=== PATIENT | female | born 1960 | race Caucasian/White ===

== ENCOUNTER 2018-01-04 09:26 | Emergency (ER) | payer OTHER ==
[~2018-01-04] VITALS: Ht 170.2 cm; Wt 74.8 kg
[~2018-01-04 09:26] MED LIST: ACET325; ALPR.25 PO; ALPR.5 PO; ASPI325 PO; ASPI81CH PO; Aspir 8181 MG PO; BUSP10 PO; CEPH500 PO; CHOLESTEROL; CILO100 PO; CLOP75 PO; CYCL10 PO; Co Q-1010 MG PO; Crestor40 MG PO; DELTASONE20 MG PO; DULO30 PO; DULO60 PO; FAMO20 PO; FAMO40 PO; FETZIMA120 MG PO; FISH1000 PO; GABA600 PO; GABA800 PO; GENTAMICIN; HYDACE10B PO; HYDACE5 PO; HYDCHL25 PO; HYDR1TAB94 PO; Hair, Skin & N1 EACH PO; IBUHYD PO; IBUP800; ISOMON30 PO; ISOMON60ER PO; Isosorbide Mono30 MG PO; Keflex500 MG PO; LEVSOD100 PO; LEVSOD125 PO; LEVSOD25 PO; MELO7.5 PO; METO10 PO; METO25 PO; METO50 PO; Mobic7.5 MG PO; Multiple Vitam1 EAC1; NAPR250 PO; NAPR500 PO; NAPR550 PO; NITR.4SL SL; NITR.6SL; NITR.6SL SL; NORT25 PO; NYST100SU SS; Nicoderm Cq1 EAC1 TD; ONDA4ODT MM; OXYACE5T PO; PANT40 PO; PARO20 PO; PLETAL; PROC10 PO; PROC25S; PROC25S PR; PROM25 PO; Percocet 5-3251 EACH PO; RANI150 PO; ROCEPHIN IVPB; ROSU10TA PO; RXHYOS.125 PO; RXONDA4ODT MM; RXOXYACE PO; SUMA25 PO; Stool Softener100 MG PO; THYROID; THYROID PILL; TOPI100 PO; TRAM50 PO; UNKNOWN ANXIETY MED; Ultram50 MG PO; [UNRECOGNIZED DRUG - REMARK]; [UNRECOGNIZED DRUG - REMARK]
[2018-01-04] MEDS ORDERED: Percocet 5-3251 EACH PO (10:13)
[2018-01-04] MEDS ORDERED: Mupirocin22 GM TOP (10:13)
== END 2018-01-04 10:50 | disposition home or self-care (01) ==
LOC: ER 09:26
DX: T21.02XA Burn of unspecified degree of abdominal wall, initial encounter (principal); T31.0 Burns involving less than 10% of body surface; X11.8XXA Contact with other hot tap-water, initial encounter; Z88.8 Allergy status to other drugs, medicaments and biological substances; Z79.899 Other long term (current) drug therapy; Z79.82 Long term (current) use of aspirin; E03.9 Hypothyroidism, unspecified; Z86.73 Personal history of transient ischemic attack (TIA), and cerebral infarction without residual deficits; I25.2 Old myocardial infarction; G43.909 Migraine, unspecified, not intractable, without status migrainosus; E78.00 Pure hypercholesterolemia, unspecified; Z87.891 Personal history of nicotine dependence
CPT/HCPCS: 16020; 96372; 99283; J1170

== ENCOUNTER 2018-02-22 12:27 | Emergency (ER) | payer OTHER ==
[~2018-02-22] VITALS: Ht 170.2 cm; Wt 68.0 kg
[~2018-02-22 12:27] MED LIST changes: +Mupirocin22 GM TOP
[2018-02-22 12:53] LABS: BASOPHILS ABSOLUTE AUTO 0.06 K/mm3 (0.00-0.23); BASOPHILS PERCENT AUTO 1 % (0-2); EOSINOPHILS ABSOLUTE AUTO 0.21 K/mm3 (0.00-0.68); EOSINOPHILS PERCENT AUTO 2 % (0-6); Hematocrit 37.9 % (33.0-51.0); IMMATURE GRAN ABSOLUTE AUTO 0.03 K/mm3 (0.00-0.10); IMMATURE GRAN PERCENT AUTO 0 % (0-1); LYMPHOCYTES ABSOLUTE AUTO 1.97 K/mm3 (0.84-5.20); LYMPHOCYTES PERCENT AUTO 21 % (21-46); MONOCYTES ABSOLUTE AUTO 0.65 K/mm3 (0.16-1.47); MONOCYTES PERCENT AUTO 7 % (4-13); Mean Corpuscular HGB 28.3 pg (26.0-34.0); Mean Corpuscular HGB Conc 31.7 g/dL (31.5-36.5); Mean Corpuscular Volume 89 fL (80-100); Mean Platelet Volume 9.3 fL (9.1-12.4); NEUTROPHILS ABSOLUTE AUTO 6.33 K/mm3 (1.96-9.15); NEUTROPHILS PERCENT AUTO 69 % (41-73); Platelet Count 264 K/mm3 (150-400); RDW Coefficient Variation 13.8 % (11.7-14.2); RDW Standard Deviation 44.5 fL (35.1-46.3); Red Blood Cell Count 4.24 M/mm3 (3.80-5.20); White Blood Cell Count 9.25 K/mm3 (4.00-11.30)
[2018-02-22 13:07] LABS: Troponin I <0.015 ng/mL (0.000-0.040)
[2018-02-22 13:08] LABS: Alanine Aminotransfer (ALT/SGP 26 U/L (12-78); Albumin, Blood 3.7 g/dL (3.4-5.0); Albumin/Globulin Ratio 1.2 (0.8-1.8); Alk Phos 142 U/L (50-136); Anion Gap 5 mmol/L (6-16); Aspartate Aminotrans (AST/SGOT 12 U/L (12-37); Bilirubin, Total 0.3 mg/dL (0.1-1.0); Blood Urea Nitrogen 18 mg/dL (8-24); Bun/Creatinine Ratio 15.5 (12.0-20.0); CO2, Blood 30 mmol/L (21-32); Calcium, Blood 8.8 mg/dL (8.5-10.1); Chloride, Blood 104 mmol/L (98-108); Creatinine, Blood 1.16 mg/dL (0.40-1.00); Globulin, Blood 3.2 g/dL (2.2-4.0); Glomerular Filtration Rate 51 (60-); Glucose, Blood 116 mg/dL (70-99); Potassium, Blood 4.1 mmol/L (3.5-5.5); Sodium, Blood 139 mmol/L (136-145); Total Protein, Blood 6.9 g/dL (6.4-8.2)
== END 2018-02-22 13:45 | disposition home or self-care (01) ==
LOC: ER 12:27
PROVIDERS: Emergency Medicine
DX: R55 Syncope and collapse (principal); T46.5X5A Adverse effect of other antihypertensive drugs, initial encounter; I25.2 Old myocardial infarction; E78.00 Pure hypercholesterolemia, unspecified; E03.9 Hypothyroidism, unspecified; Z86.73 Personal history of transient ischemic attack (TIA), and cerebral infarction without residual deficits; Z88.8 Allergy status to other drugs, medicaments and biological substances; Z79.899 Other long term (current) drug therapy; Z79.82 Long term (current) use of aspirin; Z87.891 Personal history of nicotine dependence
CPT/HCPCS: 80053; 82947; 83880; 84484; 85025; 93005; 93010; 96361; 96374; 99284-25; J2405

== ENCOUNTER 2018-06-10 16:11 | Emergency (ER) | payer OTHER ==
[~2018-06-10] VITALS: Ht 170.2 cm; Wt 74.8 kg
[2018-06-10] MEDS ORDERED: Naprosyn500 MG PO (17:57)
[2018-06-10] MEDS ORDERED: Norco 5-325 Ta1 EACH PO (17:57)
== END 2018-06-10 18:18 | disposition home or self-care (01) ==
LOC: ER 16:11
DX: S52.121A Displaced fracture of head of right radius, initial encounter for closed fracture (principal); M25.421 Effusion, right elbow; G43.909 Migraine, unspecified, not intractable, without status migrainosus; E78.00 Pure hypercholesterolemia, unspecified; E03.9 Hypothyroidism, unspecified; Z88.8 Allergy status to other drugs, medicaments and biological substances; Z79.82 Long term (current) use of aspirin; Z79.899 Other long term (current) drug therapy; Z87.891 Personal history of nicotine dependence; W22.8XXA Striking against or struck by other objects, initial encounter
CPT/HCPCS: 29105; 73030; 73080; 73090; 96374-59; 99283-25; J1170

== ENCOUNTER 2018-09-10 14:16 | Emergency (ER) | payer OTHER ==
[~2018-09-10] VITALS: Ht 165.1 cm; Wt 81.7 kg
[~2018-09-10 14:16] MED LIST changes: -ASPI81CH PO; +Aspirin EC81 MG PO; +Hydrochloroth12.5 MG PO; -LEVSOD125 PO; +LEVSOD150 PO; +Naprosyn500 MG PO; +Norco 5-325 Ta1 EACH PO
[2018-09-10 14:41] LABS: BASOPHILS ABSOLUTE AUTO 0.04 K/mm3 (0.00-0.23); BASOPHILS PERCENT AUTO 0 % (0-2); EOSINOPHILS ABSOLUTE AUTO 0.24 K/mm3 (0.00-0.68); EOSINOPHILS PERCENT AUTO 3 % (0-6); Hematocrit 33.4 % (33.0-51.0); Hemoglobin 10.8 g/dL (11.5-16.0); IMMATURE GRAN ABSOLUTE AUTO 0.03 K/mm3 (0.00-0.10); IMMATURE GRAN PERCENT AUTO 0 % (0-1); LYMPHOCYTES PERCENT AUTO 23 % (21-46); MONOCYTES ABSOLUTE AUTO 0.77 K/mm3 (0.16-1.47); MONOCYTES PERCENT AUTO 8 % (4-13); Mean Corpuscular HGB 29.3 pg (26.0-34.0); Mean Corpuscular HGB Conc 32.3 g/dL (31.5-36.5); Mean Corpuscular Volume 91 fL (80-100); Mean Platelet Volume 9.3 fL (9.1-12.4); NEUTROPHILS ABSOLUTE AUTO 6.13 K/mm3 (1.96-9.15); NEUTROPHILS PERCENT AUTO 65 % (41-73); Platelet Count 275 K/mm3 (150-400); RDW Coefficient Variation 13.4 % (11.7-14.2); RDW Standard Deviation 44.5 fL (35.1-46.3); Red Blood Cell Count 3.68 M/mm3 (3.80-5.20); White Blood Cell Count 9.41 K/mm3 (4.00-11.30)
[2018-09-10 14:55] LABS: International Normalized Ratio 1.01; Prothrombin Time Results 10.7 Sec (9.7-11.5)
[2018-09-10 15:05] LABS: Ethanol (Alcohol), Blood, Med <3 mg/dL
[2018-09-10 15:06] LABS: Alanine Aminotransfer (ALT/SGP 42 U/L (12-78); Albumin, Blood 3.4 g/dL (3.4-5.0); Albumin/Globulin Ratio 1.1 (0.8-1.8); Alk Phos 115 U/L (50-136); Anion Gap 7 mmol/L (6-16); Aspartate Aminotrans (AST/SGOT 21 U/L (12-37); Bilirubin, Total 0.4 mg/dL (0.1-1.0); Blood Urea Nitrogen 23 mg/dL (8-24); Bun/Creatinine Ratio 18.3 (12.0-20.0); CO2, Blood 26 mmol/L (21-32); Calcium, Blood 8.6 mg/dL (8.5-10.1); Chloride, Blood 107 mmol/L (98-108); Creatinine, Blood 1.26 mg/dL (0.40-1.00); Glomerular Filtration Rate 46 (60-); Glucose, Blood 110 mg/dL (70-99); Sodium, Blood 140 mmol/L (136-145); Total Protein, Blood 6.4 g/dL (6.4-8.2)
[2018-09-10 15:14] LABS: Source, Urine Clean Catch
[2018-09-10 15:21] LABS: Bilirubin, Urine Neg (Neg); Blood, Urine 1+ (Neg); Glucose Qualitative, Urine Neg (Neg); Ketones, Urine Neg (Neg); Leukocyte Esterase, Urine 1+ (Neg); Nitrite, Urine Neg (Neg); Protein, Urine 1+ (Neg); Urobilinogen, Urine 1+ (Normal)
[2018-09-10 15:40] LABS: Appearance, Urine Hazy (Clear); Color, Urine Yellow (P-Yellow)
[2018-09-10 15:41] LABS: Squamous Epithelial Cells Many /hpf (Few)
[2018-09-10 15:42] LABS: Bacteria Rare /hpf; Red Blood Cells, Urine 0-2 /hpf (0-2); Transitional Epithelial Cells Few /hpf (0-Rare); White Blood Cells, Urine 0-2 /hpf (0-5)
[2018-09-10 15:58] LABS: U Amphetamine Screen Not Detected; U Barbituate Screen Not Detected; U Benzodiazapine Screen Not Detected; U Buprenorphine Screen Not Detected; U Cannabinoids Screen DETECTED; U Cocaine Screen Not Detected; U Methadone Screen Not Detected; U Methamphetamine Screen Not Detected; U Opiates Screen DETECTED; U Oxycodone Screen Not Detected; U Phencyclidine Screen Not Detected; U Propoxyphene Screen Not Detected
[2018-09-10] MEDS ORDERED: CARV25 PO (16:15)
[2018-09-10] MEDS ORDERED: Crestor40 MG PO (16:15)
[2018-09-10] MEDS ORDERED: METO50 PO (16:15)
[2018-09-10] MEDS ORDERED: LOSARTAN POTAS100 MG PO (16:16)
[2018-09-10] MEDS ORDERED: Norvasc2.5 MG PO (16:16)
[2018-09-10] MEDS ORDERED: PANT40 PO (16:17)
[2018-09-10] MEDS ORDERED: FETZIMA120 MG PO (16:17)
[2018-09-10] MEDS ORDERED: HYDHCL25 PO (16:18)
== END 2018-09-10 17:51 | disposition home or self-care (01) ==
LOC: ER 14:16
PROVIDERS: Emergency Medicine
DX: I95.9 Hypotension, unspecified (principal); T50.905A Adverse effect of unspecified drugs, medicaments and biological substances, initial encounter; G43.909 Migraine, unspecified, not intractable, without status migrainosus; I25.2 Old myocardial infarction; E78.00 Pure hypercholesterolemia, unspecified; Z86.73 Personal history of transient ischemic attack (TIA), and cerebral infarction without residual deficits; Z88.8 Allergy status to other drugs, medicaments and biological substances; Z79.82 Long term (current) use of aspirin
CPT/HCPCS: 70450; 71045; 80053; 81001; 82947; 85025; 85610; 87086; 93005; 93010; 96360; 96361; 99285-25; G0480; J7030; J7120

== ENCOUNTER 2018-09-27 17:54 | Emergency (ER) | payer OTHER ==
[~2018-09-27] VITALS: Ht 170.2 cm; Wt 86.2 kg
[~2018-09-27 17:54] MED LIST changes: +CARV25 PO; +HYDHCL25 PO; +LOSARTAN POTAS100 MG PO; +Norvasc2.5 MG PO
[2018-09-27 18:39] LABS: BASOPHILS ABSOLUTE AUTO 0.03 K/mm3 (0.00-0.23); BASOPHILS PERCENT AUTO 0 % (0-2); EOSINOPHILS ABSOLUTE AUTO 0.23 K/mm3 (0.00-0.68); EOSINOPHILS PERCENT AUTO 2 % (0-6); Hematocrit 31.5 % (33.0-51.0); Hemoglobin 10.2 g/dL (11.5-16.0); IMMATURE GRAN ABSOLUTE AUTO 0.05 K/mm3 (0.00-0.10); IMMATURE GRAN PERCENT AUTO 0 % (0-1); LYMPHOCYTES ABSOLUTE AUTO 1.99 K/mm3 (0.84-5.20); LYMPHOCYTES PERCENT AUTO 18 % (21-46); MONOCYTES ABSOLUTE AUTO 0.82 K/mm3 (0.16-1.47); MONOCYTES PERCENT AUTO 7 % (4-13); Mean Corpuscular HGB 28.7 pg (26.0-34.0); Mean Corpuscular HGB Conc 32.4 g/dL (31.5-36.5); Mean Corpuscular Volume 89 fL (80-100); Mean Platelet Volume 9.2 fL (9.1-12.4); NEUTROPHILS ABSOLUTE AUTO 8.01 K/mm3 (1.96-9.15); NEUTROPHILS PERCENT AUTO 72 % (41-73); Platelet Count 296 K/mm3 (150-400); RDW Coefficient Variation 13.7 % (11.7-14.2); RDW Standard Deviation 44.5 fL (35.1-46.3); Red Blood Cell Count 3.55 M/mm3 (3.80-5.20); White Blood Cell Count 11.13 K/mm3 (4.00-11.30)
[2018-09-27 18:59] LABS: Alanine Aminotransfer (ALT/SGP 50 U/L (12-78); Albumin, Blood 3.8 g/dL (3.4-5.0); Albumin/Globulin Ratio 1.3 (0.8-1.8); Alk Phos 108 U/L (50-136); Anion Gap 6 mmol/L (6-16); Aspartate Aminotrans (AST/SGOT 23 U/L (12-37); Bilirubin, Total 0.4 mg/dL (0.1-1.0); Blood Urea Nitrogen 24 mg/dL (8-24); Bun/Creatinine Ratio 15.3 (12.0-20.0); CO2, Blood 27 mmol/L (21-32); Calcium, Blood 8.5 mg/dL (8.5-10.1); Chloride, Blood 104 mmol/L (98-108); Creatinine, Blood 1.57 mg/dL (0.40-1.00); Globulin, Blood 2.9 g/dL (2.2-4.0); Glomerular Filtration Rate 36 (60-); Glucose, Blood 142 mg/dL (70-99); Potassium, Blood 3.9 mmol/L (3.5-5.5); Sodium, Blood 137 mmol/L (136-145); Total Protein, Blood 6.7 g/dL (6.4-8.2); Troponin I <0.015 ng/mL (0.000-0.040)
[2018-09-27 20:01] LABS: Source, Urine Clean Catch
[2018-09-27 20:19] LABS: Bilirubin, Urine Neg (Neg); Blood, Urine 1+ (Neg); Glucose Qualitative, Urine Neg (Neg); Ketones, Urine Neg (Neg); Leukocyte Esterase, Urine 1+ (Neg); Nitrite, Urine Neg (Neg); Protein, Urine 1+ (Neg); Urobilinogen, Urine NORM (Normal)
[2018-09-27 20:30] LABS: Appearance, Urine Clear (Clear); Color, Urine Yellow (P-Yellow)
[2018-09-27 20:31] LABS: Bacteria Few /hpf; Red Blood Cells, Urine 0-2 /hpf (0-2); Squamous Epithelial Cells Few /hpf (Few); White Blood Cells, Urine 0-2 /hpf (0-5)
[2018-09-27 20:35] LABS: U Amphetamine Screen Not Detected; U Barbituate Screen Not Detected; U Benzodiazapine Screen Not Detected; U Buprenorphine Screen Not Detected; U Cannabinoids Screen DETECTED; U Cocaine Screen Not Detected; U Methadone Screen Not Detected; U Methamphetamine Screen Not Detected; U Opiates Screen DETECTED; U Oxycodone Screen Not Detected; U Phencyclidine Screen Not Detected; U Propoxyphene Screen Not Detected
[2018-09-27] MEDS ORDERED: Magnesium Citr296 ML PO (21:21)
== END 2018-09-27 21:30 | disposition home or self-care (01) ==
LOC: ER 17:54
PROVIDERS: Emergency Medicine
DX: E86.0 Dehydration (principal); K59.00 Constipation, unspecified; Z88.8 Allergy status to other drugs, medicaments and biological substances; Z79.899 Other long term (current) drug therapy; Z79.82 Long term (current) use of aspirin; I25.2 Old myocardial infarction; G43.909 Migraine, unspecified, not intractable, without status migrainosus; E03.9 Hypothyroidism, unspecified; F17.210 Nicotine dependence, cigarettes, uncomplicated
CPT/HCPCS: 74022; 80053; 81001; 84484; 85025; 87086; 93005; 93010; 96361; 96374; 99284-25; G0480; J1885; P9612

== ENCOUNTER 2018-10-16 15:15 | Emergency (ER) | payer OTHER ==
[~2018-10-16] VITALS: Ht 170.2 cm; Wt 77.1 kg
[~2018-10-16 15:15] MED LIST changes: +Magnesium Citr296 ML PO
[2018-10-16] MEDS ORDERED: HYDR1TAB94 PO (17:17)
== END 2018-10-16 17:25 | disposition home or self-care (01) ==
LOC: ER 15:15
DX: S53.401A Unspecified sprain of right elbow, initial encounter (principal); X58.XXXA Exposure to other specified factors, initial encounter; Z88.8 Allergy status to other drugs, medicaments and biological substances; Z79.899 Other long term (current) drug therapy; Z79.82 Long term (current) use of aspirin; I25.2 Old myocardial infarction; G43.909 Migraine, unspecified, not intractable, without status migrainosus; Z86.73 Personal history of transient ischemic attack (TIA), and cerebral infarction without residual deficits; E03.9 Hypothyroidism, unspecified; F17.210 Nicotine dependence, cigarettes, uncomplicated
CPT/HCPCS: 73080; 99283-25

== ENCOUNTER 2019-10-16 22:10 | Emergency (ER) | payer OTHER ==
[~2019-10-16] VITALS: Ht 170.2 cm; Wt 77.1 kg
[2019-10-16 22:45] LABS: BASOPHILS ABSOLUTE AUTO 0.05 K/mm3 (0.00-0.23); BASOPHILS PERCENT AUTO 0 % (0-2); EOSINOPHILS ABSOLUTE AUTO 0.29 K/mm3 (0.00-0.68); EOSINOPHILS PERCENT AUTO 2 % (0-6); Hematocrit 35.5 % (33.0-51.0); Hemoglobin 11.5 g/dL (11.5-16.0); IMMATURE GRAN ABSOLUTE AUTO 0.06 K/mm3 (0.00-0.10); IMMATURE GRAN PERCENT AUTO 0 % (0-1); LYMPHOCYTES PERCENT AUTO 27 % (21-46); MONOCYTES ABSOLUTE AUTO 1.19 K/mm3 (0.16-1.47); MONOCYTES PERCENT AUTO 8 % (4-13); Mean Corpuscular HGB Conc 32.4 g/dL (31.5-36.5); Mean Corpuscular Volume 90 fL (80-100); Mean Platelet Volume 9.1 fL (9.1-12.4); NEUTROPHILS ABSOLUTE AUTO 9.05 K/mm3 (1.96-9.15); NEUTROPHILS PERCENT AUTO 62 % (41-73); Platelet Count 300 K/mm3 (150-400); RDW Coefficient Variation 13.3 % (11.7-14.2); RDW Standard Deviation 44.1 fL (35.1-46.3); Red Blood Cell Count 3.96 M/mm3 (3.80-5.20); White Blood Cell Count 14.54 K/mm3 (4.00-11.30)
[2019-10-16 23:01] LABS: International Normalized Ratio 0.98; Prothrombin Time Results 10.5 Sec (9.7-11.5)
[2019-10-16 23:06] LABS: Alanine Aminotransfer (ALT/SGP 30 U/L (12-78); Albumin, Blood 3.8 g/dL (3.4-5.0); Albumin/Globulin Ratio 1.1 (0.8-1.8); Alk Phos 116 U/L (50-136); Anion Gap 4 mmol/L (6-16); Aspartate Aminotrans (AST/SGOT 18 U/L (12-37); Bilirubin, Total 0.3 mg/dL (0.1-1.0); Blood Urea Nitrogen 17 mg/dL (8-24); CO2, Blood 31 mmol/L (21-32); Calcium, Blood 8.6 mg/dL (8.5-10.1); Chloride, Blood 102 mmol/L (98-108); Creatinine, Blood 0.95 mg/dL (0.40-1.00); Globulin, Blood 3.4 g/dL (2.2-4.0); Glomerular Filtration Rate >60 (60-); Glucose, Blood 104 mg/dL (70-99); Potassium, Blood 3.5 mmol/L (3.5-5.5); Sodium, Blood 137 mmol/L (136-145); Total Protein, Blood 7.2 g/dL (6.4-8.2); Troponin I <0.015 ng/mL (0.000-0.040)
[2019-10-17] MEDS ORDERED: ONDA4ODT MM
[2019-10-17] MEDS ORDERED: AMOCLA875 PO (00:11)
[2019-11-30] MEDS ORDERED: CLOP75 PO (09:11)
[2019-11-30] MEDS ORDERED: CARV25 PO (09:11)
[2019-11-30] MEDS ORDERED: Hydrochloroth12.5 MG PO (09:11)
[2019-11-30] MEDS ORDERED: LOSARTAN POTAS100 M1 PO (09:11)
[2019-11-30] MEDS ORDERED: PANT40 PO (09:12)
[2019-11-30] MEDS ORDERED: NITR.4SL SL (09:12)
[2019-11-30] MEDS ORDERED: Crestor40 MG PO (09:12)
[2019-11-30] MEDS ORDERED: SYNTHROID150 MC1 PO (09:12)
[2019-11-30] MEDS ORDERED: Gabapentin600 MG PO (09:13)
[2019-11-30] MEDS ORDERED: FISH OIL 1,2001 EAC7 PO (09:13)
[2019-11-30] MEDS ORDERED: HYDHCL25 PO (09:14)
[2019-11-30] MEDS ORDERED: MULTIPLE VITAM1 EACH PO (09:14)
[2019-11-30] MEDS ORDERED: NORT25 (09:14)
[2019-11-30] MEDS ORDERED: VOLTAREN ARTHRI20 GM (09:15)
[2019-11-30] MEDS ORDERED: PROBIOTIC250 MG (09:15)
[2019-11-30] MEDS ORDERED: AMLO10 PO (09:15)
[2019-12-08] MEDS ORDERED: Aspir 8181 MG (13:37)
[2019-12-08] MEDS ORDERED: Aspir 8181 MG PO (13:37)
== END 2019-10-17 00:50 | disposition home or self-care (01) ==
LOC: ER 22:10
PROVIDERS: Emergency Medicine
DX: K57.32 Diverticulitis of large intestine without perforation or abscess without bleeding (principal); K52.9 Noninfective gastroenteritis and colitis, unspecified; I25.2 Old myocardial infarction; E03.9 Hypothyroidism, unspecified; Z86.73 Personal history of transient ischemic attack (TIA), and cerebral infarction without residual deficits; Z88.8 Allergy status to other drugs, medicaments and biological substances; Z79.899 Other long term (current) drug therapy; F17.210 Nicotine dependence, cigarettes, uncomplicated
CPT/HCPCS: 36415; 74176; 80053; 83690; 84484; 85025; 85610; 96361; 96374; 96375; 99284-25; A9270-GY; J1885; J2270; J2405; J7030

== ENCOUNTER → 2020-03-03 | Outpatient (CLI) | payer OTHER ==
[~2020-03-03] MED LIST changes: +AMLO10 PO; +AMOCLA875 PO; +Aspir 8181 MG; +FISH OIL 1,2001 EAC7 PO; +Gabapentin600 MG PO; +LOSARTAN POTAS100 M1 PO; +MULTIPLE VITAM1 EACH PO; +NORT25; +PROBIOTIC250 MG; +SYNTHROID150 MC1 PO; +VOLTAREN ARTHRI20 GM
[2020-03-07 15:07] LABS: HPV 16 Negative (Negative); HPV 18 Negative (Negative); HPV OTHER HR TYPES Negative (Negative)
== END ==
LOC: LAB SHORT 18:19 → LAB 18:19
PROVIDERS: Nurse Practitioner Family
DX: Z00.00 Encounter for general adult medical examination without abnormal findings (principal)
CPT/HCPCS: 87624; G0123

== ENCOUNTER 2020-04-04 04:46 | Emergency (ER) | payer OTHER ==
[~2020-04-04] VITALS: Ht 170.2 cm; Wt 74.8 kg
== END 2020-04-04 05:40 | disposition home or self-care (01) ==
LOC: ER 04:46
DX: M54.41 Lumbago with sciatica, right side (principal); Z79.82 Long term (current) use of aspirin; Z79.02 Long term (current) use of antithrombotics/antiplatelets; Z79.899 Other long term (current) drug therapy
CPT/HCPCS: 96372; 99282-25; J1885

== ENCOUNTER 2020-06-23 01:21 | Emergency (ER) | payer OTHER ==
[~2020-06-23] VITALS: Ht 170.2 cm; Wt 77.1 kg
== END 2020-06-23 05:18 | disposition home or self-care (01) ==
LOC: ER 01:21
DX: M54.5 Low back pain (principal); G89.29 Other chronic pain; E78.00 Pure hypercholesterolemia, unspecified; E03.9 Hypothyroidism, unspecified; I25.10 Atherosclerotic heart disease of native coronary artery without angina pectoris; I25.2 Old myocardial infarction; F17.200 Nicotine dependence, unspecified, uncomplicated; Z88.8 Allergy status to other drugs, medicaments and biological substances; Z79.899 Other long term (current) drug therapy; Z79.02 Long term (current) use of antithrombotics/antiplatelets; Z95.5 Presence of coronary angioplasty implant and graft; Z79.82 Long term (current) use of aspirin
CPT/HCPCS: 96372; 99283-25; A9270; J1100; J1790; J1885

== ENCOUNTER 2020-08-31 23:48 | Emergency (ER) | payer OTHER ==
[~2020-08-31] VITALS: Ht 170.2 cm; Wt 77.1 kg
[2020-09-01] MEDS ORDERED: OXYACE7.5T PO (01:01)
[2020-09-01] MEDS ORDERED: CRUTCH2 XX (01:02)
== END 2020-09-01 01:42 | disposition home or self-care (01) ==
LOC: ER 23:48
DX: S93.401A Sprain of unspecified ligament of right ankle, initial encounter (principal); S70.02XA Contusion of left hip, initial encounter; Z79.899 Other long term (current) drug therapy; Z79.02 Long term (current) use of antithrombotics/antiplatelets; Z79.82 Long term (current) use of aspirin; Z88.8 Allergy status to other drugs, medicaments and biological substances; W17.89XA Other fall from one level to another, initial encounter
CPT/HCPCS: 29515; 73610; 99283; A9270

== ENCOUNTER 2020-09-29 19:17 | Emergency (ER) | payer OTHER ==
[~2020-09-29] VITALS: Ht 170.2 cm; Wt 73.5 kg
[~2020-09-29 19:17] MED LIST changes: +CRUTCH2 XX; +OXYACE7.5T PO
[2020-09-29 20:13] LABS: BASOPHILS ABSOLUTE AUTO 0.02 K/mm3 (0.00-0.23); BASOPHILS PERCENT AUTO 0 % (0-2); EOSINOPHILS PERCENT AUTO 0 % (0-6); IMMATURE GRAN ABSOLUTE AUTO 0.11 K/mm3 (0.00-0.10); IMMATURE GRAN PERCENT AUTO 1 % (0-1); LYMPHOCYTES ABSOLUTE AUTO 0.99 K/mm3 (0.84-5.20); LYMPHOCYTES PERCENT AUTO 9 % (21-46); MONOCYTES ABSOLUTE AUTO 0.57 K/mm3 (0.16-1.47); MONOCYTES PERCENT AUTO 5 % (4-13); Mean Corpuscular HGB Conc 32.4 g/dL (31.5-36.5); Mean Corpuscular Volume 89 fL (80-100); Mean Platelet Volume 9.1 fL (9.1-12.4); NEUTROPHILS ABSOLUTE AUTO 9.94 K/mm3 (1.96-9.15); NEUTROPHILS PERCENT AUTO 86 % (41-73); Platelet Count 314 K/mm3 (150-400); RDW Coefficient Variation 13.9 % (11.7-14.2); Red Blood Cell Count 4.14 M/mm3 (3.80-5.20); White Blood Cell Count 11.63 K/mm3 (4.00-11.30)
[2020-09-29 20:29] LABS: Alanine Aminotransfer (ALT/SGP 97 U/L (12-78); Albumin, Blood 4.1 g/dL (3.4-5.0); Alk Phos 164 U/L (50-136); Anion Gap 6 mmol/L (6-16); Aspartate Aminotrans (AST/SGOT 35 U/L (12-37); Bilirubin, Total 0.2 mg/dL (0.1-1.0); Blood Urea Nitrogen 15 mg/dL (8-24); Bun/Creatinine Ratio 18.7 (12.0-20.0); CO2, Blood 29 mmol/L (21-32); Calcium, Blood 9.6 mg/dL (8.5-10.1); Chloride, Blood 103 mmol/L (98-108); Globulin, Blood 4.3 g/dL (2.2-4.0); Glomerular Filtration Rate >60 (60-); Glucose, Blood 204 mg/dL (70-99); Potassium, Blood 4.1 mmol/L (3.5-5.5); Sodium, Blood 138 mmol/L (136-145); Total Protein, Blood 8.4 g/dL (6.4-8.2); Troponin I <0.015 ng/mL (0.000-0.040)
== END 2020-09-29 23:51 | disposition home or self-care (01) ==
LOC: ER 19:17
PROVIDERS: Emergency Medicine
DX: I10 Essential (primary) hypertension (principal); I25.2 Old myocardial infarction; E78.00 Pure hypercholesterolemia, unspecified; F17.290 Nicotine dependence, other tobacco product, uncomplicated; Z88.8 Allergy status to other drugs, medicaments and biological substances; Z79.02 Long term (current) use of antithrombotics/antiplatelets; Z79.899 Other long term (current) drug therapy
CPT/HCPCS: 71045; 80053; 83690; 84484; 85025; 93005; 93010; 96374; 96375; 96376; 99285-25; J0360; J1170; J2405; J7030

== ENCOUNTER 2021-07-08 12:04 | Inpatient (IN) | payer OTHER ==
[~2021-07-08] VITALS: Ht 170.2 cm; Wt 79.4 kg
[~2021-07-08 12:04] MED LIST changes: -NORT25; -VOLTAREN ARTHRI20 GM; +VOLTAREN ARTHRI20 GM TD
[2021-07-08 12:33] LABS: BASOPHILS ABSOLUTE AUTO 0.07 K/mm3 (0.00-0.23); BASOPHILS PERCENT AUTO 1 % (0-2); EOSINOPHILS ABSOLUTE AUTO 0.42 K/mm3 (0.00-0.68); EOSINOPHILS PERCENT AUTO 5 % (0-6); Hematocrit 34.1 % (33.0-51.0); Hemoglobin 10.6 g/dL (11.5-16.0); IMMATURE GRAN ABSOLUTE AUTO 0.03 K/mm3 (0.00-0.10); IMMATURE GRAN PERCENT AUTO 0 % (0-1); LYMPHOCYTES ABSOLUTE AUTO 1.64 K/mm3 (0.84-5.20); LYMPHOCYTES PERCENT AUTO 17 % (21-46); MONOCYTES ABSOLUTE AUTO 0.59 K/mm3 (0.16-1.47); MONOCYTES PERCENT AUTO 6 % (4-13); Mean Corpuscular HGB 26.2 pg (26.0-34.0); Mean Corpuscular HGB Conc 31.1 g/dL (31.5-36.5); Mean Corpuscular Volume 84 fL (80-100); Mean Platelet Volume 8.8 fL (9.1-12.4); NEUTROPHILS ABSOLUTE AUTO 6.67 K/mm3 (1.96-9.15); NEUTROPHILS PERCENT AUTO 71 % (41-73); Platelet Count 316 K/mm3 (150-400); RDW Coefficient Variation 14.6 % (11.7-14.2); RDW Standard Deviation 44.7 fL (35.1-46.3); Red Blood Cell Count 4.05 M/mm3 (3.80-5.20); White Blood Cell Count 9.42 K/mm3 (4.00-11.30)
[2021-07-08 12:43] LABS: Alanine Aminotransfer (ALT/SGP 40 U/L (12-78); Albumin, Blood 3.5 g/dL (3.4-5.0); Albumin/Globulin Ratio 0.9 (0.8-1.8); Alk Phos 151 U/L (50-136); Anion Gap 8 mmol/L (6-16); Aspartate Aminotrans (AST/SGOT 22 U/L (12-37); Bilirubin, Total 0.4 mg/dL (0.1-1.0); Blood Urea Nitrogen 15 mg/dL (8-24); Bun/Creatinine Ratio 21.7 (12.0-20.0); CO2, Blood 25 mmol/L (21-32); Calcium, Blood 9.4 mg/dL (8.5-10.1); Chloride, Blood 104 mmol/L (98-108); Creatinine, Blood 0.69 mg/dL (0.40-1.00); Globulin, Blood 3.7 g/dL (2.2-4.0); Glomerular Filtration Rate >60 (60-); Glucose, Blood 127 mg/dL (70-99); Potassium, Blood 3.9 mmol/L (3.5-5.5); Sodium, Blood 137 mmol/L (136-145); Total Protein, Blood 7.2 g/dL (6.4-8.2)
[2021-07-08 13:39] LABS: Influenza A, PCR NEGATIVE (NEGATIVE); Influenza B, PCR NEGATIVE (NEGATIVE); Resp Syncytial Virus, PCR NEGATIVE (NEGATIVE); SARS-Cov-2 (COVID-19) PCR, MMC NEGATIVE (NEGATIVE)
[2021-07-08 19:48] LABS: Free Thyroxine 1.28 ng/dL (0.70-1.60)
[2021-07-08 19:49] LABS: Thyroid Stimulating Hormone 24.2 uIU/mL (0.360-4.800)
[2021-07-09 01:21] LABS: Hematocrit 34.8 % (33.0-51.0); Hemoglobin 11.2 g/dL (11.5-16.0); Mean Corpuscular HGB 26.4 pg (26.0-34.0); Mean Corpuscular HGB Conc 32.2 g/dL (31.5-36.5); Mean Corpuscular Volume 82 fL (80-100); Mean Platelet Volume 8.9 fL (9.1-12.4); Platelet Count 361 K/mm3 (150-400); RDW Coefficient Variation 14.6 % (11.7-14.2); RDW Standard Deviation 43.9 fL (35.1-46.3); Red Blood Cell Count 4.24 M/mm3 (3.80-5.20); White Blood Cell Count 10.85 K/mm3 (4.00-11.30)
[2021-07-09 01:35] LABS: Anion Gap 9 mmol/L (6-16); Blood Urea Nitrogen 16 mg/dL (8-24); Bun/Creatinine Ratio 19.8 (12.0-20.0); CO2, Blood 29 mmol/L (21-32); Calcium, Blood 9.1 mg/dL (8.5-10.1); Chloride, Blood 101 mmol/L (98-108); Creatinine, Blood 0.81 mg/dL (0.40-1.00); Glomerular Filtration Rate >60 (60-); Glucose, Blood 132 mg/dL (70-99); Potassium, Blood 3.3 mmol/L (3.5-5.5); Sodium, Blood 139 mmol/L (136-145)
--- NOTE | 2021-07-09 01:41 | NUR ---
SHIFT SUMMARY: PT. AOX4, RAPID RESPIRATIONS WITH WHEEZING NOTED. ON TELEMETRY, SINUS RHYTHM AT 92 PER SALES LEDGER ADMINISTRATOR. CAN TRANSFER WELL TO BSC ON SBA. DENIES PAIN. SLEEPING WELL, NO ACUTE CHANGES NOTED. ROUNDING PER PROTOCOL THEN PRN. ON FLUID RESTRICTION OF 1.5 L PER DAY. WILL CONTINUE TO MONITOR.
--- NOTE | 2021-07-09 08:20 | NUR ---
RHYTHM CHANGE CHILDREN'S TUTOR INFORMS THIS RN AT THIS TIME THAT WHILE STARTING ECHO, PT WAS FOUND TO NOT BE IN NSR. HE CALLED GLOBAL SALES EXECUTIVE & [employer] REPORTS THAT PT CONVERTED TO AFIB/A FLUTTER AT APPROX 0745 THIS AM. PT DENIES ANY SYMPTOMS. DR RAMIREZ INFORMED.
--- NOTE | 2021-07-09 09:59 | NUR ---
PER PROBATION AND PAROLE OFFICER, CONVERTED BACK TO NSR.
[2021-07-09] MEDS ORDERED: ALBU2.5V5 INH (10:08)
[2021-07-09] MEDS ORDERED: Tegretol Xr400 MG PO (10:10)
[2021-07-09] MEDS ORDERED: LEVOTHYROXINE200 MCG PO (10:11)
[2021-07-09] MEDS ORDERED: DULO30 PO (10:12)
[2021-07-09] MEDS ORDERED: HYDROCHLOROTH12.5 MG PO (10:15)
[2021-07-09] MEDS ORDERED: CYCL10 PO (10:16)
[2021-07-09] MEDS ORDERED: PROAIR RESPICL90 MCG INH (10:19)
[2021-07-09] MEDS ORDERED: ANORO ELLIPTA1 EACH INH (10:19)
--- NOTE | 2021-07-09 12:55 | NUR ---
Echocardiogram completed.
--- NOTE | 2021-07-09 18:06 | NUR ---
SHIFT SUMMARY PT HAS HAD NO FURTHER RUNS OF A FIB/A FLUTTER. HAD ECHO COMPLETED AROUND NOON. EATING WELL & FOLLOWING FLUID RESTRICTIONS WELL. WEANING O2. CURRENTLY ON ROOM AIR w/ NO INCREASE OF DYSPNEA. DIURESING WELL.
--- NOTE | 2021-07-09 20:00 | NUR ---
NOTIFIED DR. RUIZ OF PT'S QTC OF 0.50, DR. RUIZ SAID" THAT'S NOT BAD, I'M ORDERING K+ & MAGNESIUM RIGHT NOW, LET ME KNOW IF RESULT IS OUT",TORB.
[2021-07-09 20:56] LABS: Magnesium, Blood 2.1 mg/dL (1.6-2.4)
--- NOTE | 2021-07-09 22:39 | NUR ---
NOTIFIED DR. RUIZ OF MAGNESIUM 2.1 & POTASSIUM 4.0 LATEST LAB RESULTS, SAID " OKAY THAT'S FINE", NO OTHER ORDER RECEIVED, TORB.
--- NOTE | 2021-07-10 01:43 | NUR ---
SHIFT SUMMARY: PT. AOX4, STATED " I FEEL SO MUCH BETTER TODAY". MAINTAINED FLUID RESTRICTION OF 1.5 L/DAY WHICH PT. IS VERY COMPLIANT. USES BSC FOR BOWEL & BLADDER.SLEEPING WELL, TURNS SELF. ROUNDING PER PROTOCOL. BREATH SOUNDS ARE IMPROVED COMPARED TO THE PREVIOS DAY. NO ACUTE CHANGES NOTED, WILL CONTINUE TO MONITOR.
--- NOTE | 2021-07-10 04:12 | NUR ---
PT'S SBP ON THE 90'S, AT FIRST TAKE PT. STATED SHE WAS A LITTLE DIZZY & HUNGRY, GIVEN PUDDING & WATER, PT. STATED " I FEEL BETTER', DENIES CP. USED BSC TO VOID.SLEEPING WELL, CHECKED FREQUENTLY & NOTED SNORING BUT AROUSABLE. NO S/S OF RESP./CV DISTRESS NOTED.
[2021-07-10 08:58] LABS: Albumin, Blood 3.3 g/dL (3.4-5.0); Anion Gap 3 mmol/L (6-16); Blood Urea Nitrogen 27 mg/dL (8-24); Bun/Creatinine Ratio 28.5 (12.0-20.0); CO2, Blood 25 mmol/L (21-32); Calcium, Blood 8.7 mg/dL (8.5-10.1); Chloride, Blood 104 mmol/L (98-108); Creatinine, Blood 0.95 mg/dL (0.40-1.00); Glomerular Filtration Rate >60 (60-); Glucose, Blood 123 mg/dL (70-99); Phosphorus, Blood 3.7 mg/dL (2.5-4.9); Potassium, Blood 3.9 mmol/L (3.5-5.5); Sodium, Blood 132 mmol/L (136-145)
--- NOTE | 2021-07-10 18:54 | NUR ---
SHIFT SUMMARY- PT IS A/O, PLESANT AND COOPERATVIE. THIS MORNING SHE WAS DISORIENTED AND UNSTEADY. SPOKE WITH DR. RAMIREZ ABOUT THIS. DISCONTINUED HER TEGRATOL. PT REPORTED THAT THE LAST TIME SHE TOOK THIS MEDICATION IT MADE HER FEEL FOGGY. SHE IS EATING AND DRINKING WELL. SHE RECIEVED THE FIRST PART OF A CARDIAC STRESS TEST TODAY. HER BED IS IN THE LOW POSITION AND CALL LIGHT IS WITHIN REACH.
--- NOTE | 2021-07-11 02:33 | NUR ---
SHIFT SUMMARY: PT. TAKEN BY FAMILY OUTSIDE THE BUILDING AT THE BEGINNING OF THE SHIFT TO HER DOG VIA THE W/C. PT. STATED " I FEEL SO MUCH BETTER TO GET FRESH AIR". ROUNDING PER PROTOCOL, SLEEPING WELL, GIVEN SNACKS AT 0130 PER PT'S REQUEST. VSS, NO ACUTE CHANGES NOTED. USES BSC FOR VOIDING.WILL CONTINUE TO MONITOR.
--- NOTE | 2021-07-11 03:33 | NUR ---
STARTED NPO AT 0200 FOR POSSIBLE PROCEDURE THIS AM.
--- NOTE | 2021-07-11 05:08 | NUR ---
SYNTHROID & PROTONIX GIVEN WITH VERY LITTLE SIP OF WATER. NOTIFIED PT. AT 0200 AFTER HER SNACK THAT SHE IS ON NPO RELATED TO A STRESS TEST THIS AM, PT. VERBALIZED UNDERSTANDING.
[2021-07-11 05:36] LABS: Albumin, Blood 3.2 g/dL (3.4-5.0); Anion Gap 6 mmol/L (6-16); Blood Urea Nitrogen 30 mg/dL (8-24); Bun/Creatinine Ratio 33.3 (12.0-20.0); CO2, Blood 28 mmol/L (21-32); Calcium, Blood 8.9 mg/dL (8.5-10.1); Chloride, Blood 101 mmol/L (98-108); Glomerular Filtration Rate >60 (60-); Glucose, Blood 117 mg/dL (70-99); Phosphorus, Blood 4.1 mg/dL (2.5-4.9); Potassium, Blood 4.3 mmol/L (3.5-5.5); Sodium, Blood 135 mmol/L (136-145)
[2021-07-11] MEDS ORDERED: Pulmicort Fle180 MCG INH (13:50)
[2021-07-11] MEDS ORDERED: XARELTO20 MG PO (13:51)
[2021-07-11] MEDS ORDERED: FURO20 PO (13:51)
--- NOTE | 2021-07-11 14:54 | NUR ---
DISCHARGE NOTE: PATIENT WAS EDUCATED ON DISCHARGE INSTRUCTIONS. SHE VERBALIZED UNDERSTANDING OF INSTRUCTIONS. PATIENT IS ALERT AND ORIENTED X4. VS ARE WNL AND IS ON RA. PATIENT WAS EDUCATED ON CHF AND HOW TO IMPROVE IT SLIGHTLY UNTIL SHE SEES A KNOWLEDGE ENGINEER. PATIENT VERBALIZED UNDERSTANDING OF EDUCATION. SHE IS DRESSED AND HAS ITEMS GATHERED IN THE ROOM. IV WAS TAKEN OUT AND WAS WNL. PATIENT WAS WHEELCHAIRED OUT TO HER SONS CAR TO BE TAKEN HOME.
== END 2021-07-11 14:00 | disposition home or self-care (01) | DRG 291 ==
LOC: ER 12:04 → ERHOLD 16:29 → SURS 18:06
PROVIDERS: Emergency Medicine; Internal Medicine; ADMIT Internal Medicine
DX: I11.0 Hypertensive heart disease with heart failure (principal); I50.43 Acute on chronic combined systolic (congestive) and diastolic (congestive) heart failure; I48.92 Unspecified atrial flutter; Z20.822 Contact with and (suspected) exposure to COVID-19; I25.10 Atherosclerotic heart disease of native coronary artery without angina pectoris; I48.0 Paroxysmal atrial fibrillation; K59.00 Constipation, unspecified; R73.03 Prediabetes; E03.9 Hypothyroidism, unspecified; F41.9 Anxiety disorder, unspecified; F32.A Depression, unspecified; Z28.21 Immunization not carried out because of patient refusal; G43.909 Migraine, unspecified, not intractable, without status migrainosus; Z86.73 Personal history of transient ischemic attack (TIA), and cerebral infarction without residual deficits; E78.5 Hyperlipidemia, unspecified; R13.10 Dysphagia, unspecified; I25.2 Old myocardial infarction; Z98.890 Other specified postprocedural states; Z95.5 Presence of coronary angioplasty implant and graft; Z90.89 Acquired absence of other organs; Z90.710 Acquired absence of both cervix and uterus; Z90.49 Acquired absence of other specified parts of digestive tract; Z88.8 Allergy status to other drugs, medicaments and biological substances; Z79.899 Other long term (current) drug therapy; Z79.02 Long term (current) use of antithrombotics/antiplatelets; Z79.82 Long term (current) use of aspirin; Z86.14 Personal history of Methicillin resistant Staphylococcus aureus infection
CPT/HCPCS: 0241U; 36415; 71045; 71250; 74176; 78452; 80048; 80053; 80069; 83735; 83880; 84132; 84145; 84439; 84443; 84484; 85025; 85027; 92610; 93005; 93010; 93017; 93306; 94640; 94664; 94760; 94761; 94762; 96372; 96374; 96376; 99285-25; A9270; A9500; G0378; J0706; J1650; J1940; J2785

== ENCOUNTER 2021-08-13 03:17 | Observation (INO) | payer OTHER ==
[~2021-08-13] VITALS: Ht 170.2 cm; Wt 70.9 kg
[~2021-08-13 03:17] MED LIST changes: +ALBU2.5V5 INH; -AMLO10 PO; +ANORO ELLIPTA1 EACH INH; +Amlodipine Bes2.5 MG PO; +FURO20 PO; +GABAPENTIN600 MG PO; -Gabapentin600 MG PO; +HYDROCHLOROTH12.5 MG PO; +LEVOTHYROXINE200 MCG PO; +PROAIR RESPICL90 MCG INH; +Pulmicort Fle180 MCG INH; +Tegretol Xr400 MG PO; +XARELTO20 MG PO
[2021-08-13 03:42] LABS: BASOPHILS ABSOLUTE AUTO 0.08 K/mm3 (0.00-0.23); BASOPHILS PERCENT AUTO 1 % (0-2); EOSINOPHILS ABSOLUTE AUTO 0.92 K/mm3 (0.00-0.68); EOSINOPHILS PERCENT AUTO 9 % (0-6); Hematocrit 35.6 % (33.0-51.0); IMMATURE GRAN ABSOLUTE AUTO 0.02 K/mm3 (0.00-0.10); IMMATURE GRAN PERCENT AUTO 0 % (0-1); LYMPHOCYTES ABSOLUTE AUTO 2.35 K/mm3 (0.84-5.20); LYMPHOCYTES PERCENT AUTO 22 % (21-46); MONOCYTES ABSOLUTE AUTO 0.91 K/mm3 (0.16-1.47); MONOCYTES PERCENT AUTO 9 % (4-13); Mean Corpuscular HGB 26.1 pg (26.0-34.0); Mean Corpuscular HGB Conc 30.9 g/dL (31.5-36.5); Mean Corpuscular Volume 85 fL (80-100); Mean Platelet Volume 9.3 fL (9.1-12.4); NEUTROPHILS ABSOLUTE AUTO 6.33 K/mm3 (1.96-9.15); NEUTROPHILS PERCENT AUTO 60 % (41-73); Platelet Count 259 K/mm3 (150-400); RDW Coefficient Variation 14.6 % (11.7-14.2); RDW Standard Deviation 44.6 fL (35.1-46.3); Red Blood Cell Count 4.21 M/mm3 (3.80-5.20); White Blood Cell Count 10.61 K/mm3 (4.00-11.30)
[2021-08-13 03:55] LABS: Alanine Aminotransfer (ALT/SGP 29 U/L (12-78); Albumin, Blood 3.5 g/dL (3.4-5.0); Albumin/Globulin Ratio 0.9 (0.8-1.8); Alk Phos 118 U/L (50-136); Anion Gap 5 mmol/L (6-16); Aspartate Aminotrans (AST/SGOT 11 U/L (12-37); Bilirubin, Total 0.2 mg/dL (0.1-1.0); Blood Urea Nitrogen 25 mg/dL (8-24); Bun/Creatinine Ratio 27.8 (12.0-20.0); CO2, Blood 31 mmol/L (21-32); Calcium, Blood 9.4 mg/dL (8.5-10.1); Chloride, Blood 105 mmol/L (98-108); Globulin, Blood 3.7 g/dL (2.2-4.0); Glomerular Filtration Rate >60 (60-); Glucose, Blood 138 mg/dL (70-99); Magnesium, Blood 2.2 mg/dL (1.6-2.4); Potassium, Blood 3.8 mmol/L (3.5-5.5); Sodium, Blood 141 mmol/L (136-145); Total Protein, Blood 7.2 g/dL (6.4-8.2)
[2021-08-13 05:15] LABS: Influenza A, PCR NEGATIVE (NEGATIVE); Influenza B, PCR NEGATIVE (NEGATIVE); Resp Syncytial Virus, PCR NEGATIVE (NEGATIVE); SARS-Cov-2 (COVID-19) PCR, MMC NEGATIVE (NEGATIVE)
--- NOTE | 2021-08-13 07:04 | NUR ---
PT ARRIVES TO PCU VIA GURNEY FROM ER AT 0610, STANDS TO TRANSFER WITH SBA AND STEADY GAIT, INCREASED COUGHING IS NOTED AFTER POSITIONED IN BED. PT STATES THAT BED WILL HURT HER BACK RELATED TO OLD SURGERIES AND REQUESTS EGG CRATE MATTRESS. IV ACCESS 20G FIELD START IS NOTED TO RIGHT FOREARM, SITE WNL. SPUTUM CUP PROVIDED WILL ATTEMPT COLLECTION OF SPECIMEN.
--- NOTE | 2021-08-13 16:41 | NUR ---
Patient is lying in bed and alert. Patient talks at length about her life history, family unit complications, her relationships and the many homeless people that she has helped by allowing them to stay of her property. We discuss her Oriental Orthodox maria dolores background and how she was raised in the [place]. She asks questions about aliens, visitations from the and the plight of human suffering. I encourage self-care, provide therpeutic listening, theological insights and prayer. Patient responds well and states that the visit was "the best thing that has happened to her in months." Pt shows signs of increased peace and an elevated mood. I will continue to remain available to and family.
--- NOTE | 2021-08-13 17:26 | NUR ---
SHIFT SUMMARY PT ALERT AND ORIENTED. VS STABLE. O2 SATS REMAIN ABOVE 90% ON 2L NC. PT DENIES ANY PAIN AT THIS TIME. PT COUGHING UP THICK WHITE SPUTUM. PT ABLE TO TOLERATE GETTING UP TO THE SHOWER THIS SHIFT. WILL CONTINUE TO MONITOR AND REPORT TO ONCOMING RN. PT USING CALL LIGHT APPROPRIATELY
--- NOTE | 2021-08-14 06:32 | NUR ---
No acute events overnight. Ms. Thomas denies shortness of breath at rest and minimal dyspnea with ambulation, reporting that she is back to her "normal breathing" and feeling much better than she did upon admission. She slept well throughout the night and reports she is anxious to get back home.
[2021-08-14] MEDS ORDERED: ASPI81CH PO (11:46)
[2021-08-14] MEDS ORDERED: AZIT500 PO (11:48)
[2021-08-14] MEDS ORDERED: Tessalon200 MG PO (12:04)
[2021-08-14] MEDS ORDERED: GUAI600T33 PO (12:07)
[2021-08-14] MEDS ORDERED: LACT PO (12:07)
[2021-08-14] MEDS ORDERED: Prednisone10 MG PO (12:10)
--- NOTE | 2021-08-14 13:14 | NUR ---
DISCHARGE NOTE PT A&Ox4, VSS, SPO2>92% RA-2L NC WHICH IS PT BASELINE, SR 80'S. PT IND. DISCHARGE INSTRUCTIONS REVIEWED, IV REMOVED, WNL. BROUGHT PT OUT VIA WHEELCHAIR WITH BELONGINGS AT APPROXIMATELY 1230.
--- NOTE | 2021-08-14 17:43 | NUR ---
THIS RN AGREES W/ STUDENT NURSE DOCUMENTATION THIS SHIFT.
== END 2021-08-14 12:25 | disposition home or self-care (01) ==
LOC: ER 03:17 → PCU 03:18
PROVIDERS: Student in an Organized Health Care Education/Training Program; ADMIT Internal Medicine
DX: J44.1 Chronic obstructive pulmonary disease with (acute) exacerbation (principal); J44.0 Chronic obstructive pulmonary disease with (acute) lower respiratory infection; I11.0 Hypertensive heart disease with heart failure; I25.10 Atherosclerotic heart disease of native coronary artery without angina pectoris; I25.2 Old myocardial infarction; E78.00 Pure hypercholesterolemia, unspecified; J96.21 Acute and chronic respiratory failure with hypoxia; I50.23 Acute on chronic systolic (congestive) heart failure; J96.22 Acute and chronic respiratory failure with hypercapnia; J20.9 Acute bronchitis, unspecified; G43.909 Migraine, unspecified, not intractable, without status migrainosus; E03.9 Hypothyroidism, unspecified; I48.0 Paroxysmal atrial fibrillation; E78.5 Hyperlipidemia, unspecified; K44.9 Diaphragmatic hernia without obstruction or gangrene; F32.A Depression, unspecified; F41.0 Panic disorder [episodic paroxysmal anxiety]; K21.9 Gastro-esophageal reflux disease without esophagitis; I73.9 Peripheral vascular disease, unspecified; Z90.49 Acquired absence of other specified parts of digestive tract; Z88.5 Allergy status to narcotic agent; Z88.8 Allergy status to other drugs, medicaments and biological substances; Z95.5 Presence of coronary angioplasty implant and graft; Z90.710 Acquired absence of both cervix and uterus; Z87.891 Personal history of nicotine dependence; Z79.01 Long term (current) use of anticoagulants; Z95.828 Presence of other vascular implants and grafts; Z20.822 Contact with and (suspected) exposure to COVID-19
CPT/HCPCS: 0241U; 36415; 71045; 80053; 83735; 83880; 84484; 85025; 93005; 93010; 94640; 94644; 94664; 94760; 96372; 96375; 96376; A9270; G0378; J1650; J2405; J2930

== ENCOUNTER 2021-11-15 12:11 | Observation (INO) | payer OTHER ==
[~2021-11-15] VITALS: Ht 167.6 cm; Wt 77.1 kg
[~2021-11-15 12:11] MED LIST changes: +ASPI81CH PO; +AZIT500 PO; +GUAI600T33 PO; +LACT PO; +Prednisone10 MG PO; +Tessalon200 MG PO
[2021-11-15 12:50] LABS: BASOPHILS ABSOLUTE AUTO 0.06 K/mm3 (0.00-0.23); BASOPHILS PERCENT AUTO 1 % (0-2); EOSINOPHILS ABSOLUTE AUTO 0.55 K/mm3 (0.00-0.68); EOSINOPHILS PERCENT AUTO 7 % (0-6); Hematocrit 28.8 % (33.0-51.0); Hemoglobin 9.3 g/dL (11.5-16.0); IMMATURE GRAN ABSOLUTE AUTO 0.02 K/mm3 (0.00-0.10); IMMATURE GRAN PERCENT AUTO 0 % (0-1); LYMPHOCYTES ABSOLUTE AUTO 2.11 K/mm3 (0.84-5.20); LYMPHOCYTES PERCENT AUTO 27 % (21-46); MONOCYTES ABSOLUTE AUTO 0.69 K/mm3 (0.16-1.47); MONOCYTES PERCENT AUTO 9 % (4-13); Mean Corpuscular HGB 27.1 pg (26.0-34.0); Mean Corpuscular HGB Conc 32.3 g/dL (31.5-36.5); Mean Corpuscular Volume 84 fL (80-100); Mean Platelet Volume 8.8 fL (9.1-12.4); NEUTROPHILS ABSOLUTE AUTO 4.46 K/mm3 (1.96-9.15); NEUTROPHILS PERCENT AUTO 57 % (41-73); Platelet Count 261 K/mm3 (150-400); RDW Coefficient Variation 14.7 % (11.7-14.2); Red Blood Cell Count 3.43 M/mm3 (3.80-5.20); White Blood Cell Count 7.89 K/mm3 (4.00-11.30)
[2021-11-15 12:52] LABS: Albumin, Blood 3.3 g/dL (3.4-5.0); Bilirubin, Total 0.3 mg/dL (0.1-1.0); Bun/Creatinine Ratio 18.3 (12.0-20.0); Calcium, Blood 8.9 mg/dL (8.5-10.1); Creatinine, Blood 0.98 mg/dL (0.40-1.00); Globulin, Blood 3.2 g/dL (2.2-4.0); Potassium, Blood 3.9 mmol/L (3.5-5.5); Total Protein, Blood 6.5 g/dL (6.4-8.2)
[2021-11-15] MEDS ORDERED: HYDCHL25 PO (15:26)
--- NOTE | 2021-11-15 17:52 | NUR ---
ALERT, DROWSY, DAUGHTER STAYED TO HELP WITH THE ADMIT, MEDICATION LIST STILL INCOMPLETE, PATINET WAKES AND QUICKLY BACK TO SLEEP, COMPLAINS OF BEING COLD, WARMED BLANKETS AND ROOM TEMPERATURE INCREASED, TEMP 98, CARDIAC DIET, CONTINUOUS TELEMETRY, HEART RATE WAS FOUND IN THE 20S UNPON EMS ARRIVAL AT HER PLACE OF RESIDENCE, HAS NOT BEEN LOWER THAN 60 SINCE ON THE FLOOR, PERIWICK IN PLACE, PATIENT TAKES LASIX, REPORTS OF A RECURRENT BACK WOUND NOT FOUND, LS DIMINSHED, FINE CRACKLES, CLEARS WITH COUGH, LAST BM YESTERDAY, DENIES N/V, DENIES CP, OREINTED TO ROOM AND [facility] POLICIES, CALL LIGHT WITH IN REACH, BED ALARM ON FOR SYNCOPE AND FALL RISK, WILL RELAY TO PM RN, FADI
--- NOTE | 2021-11-16 05:06 | NUR ---
SHIFT SUMMARY PT IS SLIGHTLY CONFUSED AND DOES NOT REMEMBER THE EVENTS OF THIS MORNING. SHE WAS NOT ABLE TO BE CONVINCED TO STAY IN BED AND SO WAS TRANFERRED TO THE COMMODE WITH THE HELP OF TWO PEOPLE. SHE IS EAGER TO GO HOME. HER MEDICATIONS ARE ALSO NO RECONCILED BECAUSE THE PTS SPOUSE PUTS TOGETHER HER MEDICATIONS EVERY MORNING AND SHE HAS NO IDEA WHAT SHE TAKES. SHE CALLED HIM TO HELP GET A LIST OF MEDICATIONS AND HE WAS BELIGERENT, DRUNK, AND RUDE AND REFUSED TO COOPERATE WITH PT TO GET AN ACCURATE LIST. THIS RN WILL PASS ON ABOUT A SOCIAL SERIVES CONSULT AND TO GET AN UPDATED LIST FROM [facility]. PT IS STILL UNSTEADY ON HER FEET, LETHARGIC, AND CONFUSED, BED IN LOWEST POSITION AND CALL LIGHT IN REACH
[2021-11-16 05:13] LABS: Hematocrit 30.7 % (33.0-51.0); Hemoglobin 9.7 g/dL (11.5-16.0); Mean Corpuscular HGB 26.7 pg (26.0-34.0); Mean Corpuscular HGB Conc 31.6 g/dL (31.5-36.5); Mean Corpuscular Volume 85 fL (80-100); Mean Platelet Volume 8.7 fL (9.1-12.4); Platelet Count 310 K/mm3 (150-400); RDW Coefficient Variation 14.6 % (11.7-14.2); RDW Standard Deviation 45.1 fL (35.1-46.3); Red Blood Cell Count 3.63 M/mm3 (3.80-5.20); White Blood Cell Count 9.11 K/mm3 (4.00-11.30)
[2021-11-16 06:15] LABS: Bun/Creatinine Ratio 16.3 (12.0-20.0); Calcium, Blood 9.1 mg/dL (8.5-10.1); Creatinine, Blood 0.98 mg/dL (0.40-1.00); Potassium, Blood 3.8 mmol/L (3.5-5.5)
[2021-11-16] MEDS ORDERED: Norco 5-325 Ta1 EACH PO (09:53)
[2021-11-16] MEDS ORDERED: AMOCLA875 PO (09:55)
[2021-11-16] MEDS ORDERED: CEPH500 PO (09:56)
[2021-11-16] MEDS ORDERED: CLOP75 PO (09:59)
--- NOTE | 2021-11-16 10:15 | NUR ---
RECEIVED PT'S HOME MEDICATION LIST FROM [facility]. HOME MEDICATIONS HAVE BEEN FULLY RECONCILED. DR. MOHAN NOTIFIED IN PERSON.
[2021-11-16 14:23] LABS: Hematocrit 39.2 % (33.0-51.0); Hemoglobin 12.5 g/dL (11.5-16.0)
--- NOTE | 2021-11-16 18:46 | NUR ---
SHIFT SUMMARY: HYPERTENSIVE TO 180-190/80'S WITH HEADACHE; HYDRALAZINE GIVEN WITH GOOD EFFECT AND STARTED ON HOME DOSE OF COREG, STATED THIS EVENING THAT SHE FEELS MUCH BETTER. C/O PAIN IN LLE FROM PREVIOUS CELLULITIS; MEDICATED PER EMAR WITH ADEQUATE RELIEF, IS ASKING WHY HER PREVIOUS ABX HAVE NOT BEEN RESUMED. NAUSEA RELIEVED WITH COMPAZINE. TELE SHOWED SINUS ALONDRA-SR WITH RATE 55-84. DENIED DIZZINESS WHEN GETTING OOB. WORKED WITH PHYSICAL THERAPY. CARDIAC ECHO COMPLETED. SHE BRIEFLY CONSIDERED LEAVING [place], STATING "I FELT BETTER WHEN I WAS HOME", BUT IS NOW WILLING TO STAY.
[2021-11-17] MEDS ORDERED: Ventolin5 MG/1 ML INH (00:22)
[2021-11-17] MEDS ORDERED: Pulmicort Fle180 MCG INH (00:23)
[2021-11-17] MEDS ORDERED: CYCL10 PO (00:25)
[2021-11-17] MEDS ORDERED: DULO30 PO (00:25)
[2021-11-17] MEDS ORDERED: EUTHYROX200 MCG PO (00:26)
[2021-11-17] MEDS ORDERED: NITR.4SL SL (00:27)
[2021-11-17] MEDS ORDERED: FISH OIL 1,2001 EAC7 PO (00:29)
[2021-11-17] MEDS ORDERED: PANT40 PO (00:29)
--- NOTE | 2021-11-17 04:36 | NUR ---
SHIFT SUMMARY PT IS MUCH IMPROVED THISE EVENING. SHE FEELS THAT SHE IS DOING ,UCH BETTER AND IS RELIEVED THAT HER MEDICATIONS HAVE BEEN FIGURES OUT. SHE IS AGREEABLE STAYING UNTIL HER DOCTORE GOES THROUGH HER MEDICATIONS. SHE HAS BEEN A STANDBY ASSIST TO THE BEDSIDE COMMODE. BED IN LOWEST POSITION CALL LIGHT IN REACH
[2021-11-17 05:47] LABS: BASOPHILS ABSOLUTE AUTO 0.04 K/mm3 (0.00-0.23); BASOPHILS PERCENT AUTO 1 % (0-2); EOSINOPHILS ABSOLUTE AUTO 0.43 K/mm3 (0.00-0.68); EOSINOPHILS PERCENT AUTO 5 % (0-6); Hematocrit 31.7 % (33.0-51.0); Hemoglobin 10.1 g/dL (11.5-16.0); IMMATURE GRAN ABSOLUTE AUTO 0.02 K/mm3 (0.00-0.10); IMMATURE GRAN PERCENT AUTO 0 % (0-1); LYMPHOCYTES ABSOLUTE AUTO 2.36 K/mm3 (0.84-5.20); LYMPHOCYTES PERCENT AUTO 28 % (21-46); MONOCYTES PERCENT AUTO 7 % (4-13); Mean Corpuscular HGB 26.5 pg (26.0-34.0); Mean Corpuscular HGB Conc 31.9 g/dL (31.5-36.5); Mean Corpuscular Volume 83 fL (80-100); Mean Platelet Volume 8.8 fL (9.1-12.4); NEUTROPHILS ABSOLUTE AUTO 4.94 K/mm3 (1.96-9.15); NEUTROPHILS PERCENT AUTO 59 % (41-73); Platelet Count 326 K/mm3 (150-400); RDW Coefficient Variation 14.9 % (11.7-14.2); Red Blood Cell Count 3.81 M/mm3 (3.80-5.20); White Blood Cell Count 8.39 K/mm3 (4.00-11.30)
[2021-11-17 06:14] LABS: Albumin, Blood 3.4 g/dL (3.4-5.0); Bilirubin, Total 0.3 mg/dL (0.1-1.0); Bun/Creatinine Ratio 24.6 (12.0-20.0); Calcium, Blood 9.3 mg/dL (8.5-10.1); Creatinine, Blood 0.94 mg/dL (0.40-1.00); Globulin, Blood 3.5 g/dL (2.2-4.0); Potassium, Blood 3.3 mmol/L (3.5-5.5); Total Protein, Blood 6.9 g/dL (6.4-8.2)
--- NOTE | 2021-11-17 15:30 | NUR ---
PATIENT DISCHARGED TO HOME ACCOMPANIED BY HER DAUGHTER WHO IS DRIVING. IV SALINE LOCK REMOVED WITHOUT INCIDENT. PATIENT VERBALIZED UNDERSTANDING OF D/C INSTRUCTIONS. OFF UNIT VIA W/C AT 1335. NO PERSONAL BELONGINGS LEFT BEHIND IN ROOM.
== END 2021-11-17 13:35 | disposition home or self-care (01) ==
LOC: ER 12:11 → MEDS 14:43
PROVIDERS: Emergency Medicine; Family Medicine; Nurse Practitioner Acute Care; Student in an Organized Health Care Education/Training Program; ADMIT Internal Medicine
DX: I95.2 Hypotension due to drugs (principal); T50.915A Adverse effect of multiple unspecified drugs, medicaments and biological substances, initial encounter; I25.10 Atherosclerotic heart disease of native coronary artery without angina pectoris; I11.0 Hypertensive heart disease with heart failure; I50.22 Chronic systolic (congestive) heart failure; J44.9 Chronic obstructive pulmonary disease, unspecified; I48.0 Paroxysmal atrial fibrillation; K21.9 Gastro-esophageal reflux disease without esophagitis; D64.89 Other specified anemias; R47.81 Slurred speech; L03.116 Cellulitis of left lower limb; E03.9 Hypothyroidism, unspecified; F17.210 Nicotine dependence, cigarettes, uncomplicated; Z88.8 Allergy status to other drugs, medicaments and biological substances; Z95.5 Presence of coronary angioplasty implant and graft
CPT/HCPCS: 36415; 70450; 80048; 80053; 82272; 82533; 84439; 84443; 84484; 85014; 85018; 85025; 85027; 93005; 93010; 93306; 94640; 94664; 94760; 96374; 96375; 97110; 97116; 97162; 97530; 99285-25; A9270; G0378; J0360; J0780; J2405

== ENCOUNTER 2021-11-23 13:53 | Emergency (ER) | payer OTHER ==
[~2021-11-23] VITALS: Ht 170.2 cm; Wt 77.1 kg
[~2021-11-23 13:53] MED LIST changes: +EUTHYROX200 MCG PO; +Ventolin5 MG/1 ML INH
[2021-11-23 16:36] LABS: BASOPHILS ABSOLUTE AUTO 0.02 K/mm3 (0.00-0.23); BASOPHILS PERCENT AUTO 1 % (0-2); EOSINOPHILS ABSOLUTE AUTO 0.09 K/mm3 (0.00-0.68); EOSINOPHILS PERCENT AUTO 3 % (0-6); Hemoglobin 9.3 g/dL (11.5-16.0); IMMATURE GRAN ABSOLUTE AUTO 0.01 K/mm3 (0.00-0.10); IMMATURE GRAN PERCENT AUTO 0 % (0-1); LYMPHOCYTES ABSOLUTE AUTO 1.27 K/mm3 (0.84-5.20); LYMPHOCYTES PERCENT AUTO 38 % (21-46); MONOCYTES ABSOLUTE AUTO 0.44 K/mm3 (0.16-1.47); MONOCYTES PERCENT AUTO 13 % (4-13); Mean Corpuscular HGB 27.2 pg (26.0-34.0); Mean Corpuscular HGB Conc 33.2 g/dL (31.5-36.5); Mean Corpuscular Volume 82 fL (80-100); Mean Platelet Volume 8.8 fL (9.1-12.4); NEUTROPHILS ABSOLUTE AUTO 1.54 K/mm3 (1.96-9.15); NEUTROPHILS PERCENT AUTO 46 % (41-73); Platelet Count 182 K/mm3 (150-400); RDW Coefficient Variation 15.4 % (11.7-14.2); RDW Standard Deviation 46.2 fL (35.1-46.3); Red Blood Cell Count 3.42 M/mm3 (3.80-5.20); White Blood Cell Count 3.37 K/mm3 (4.00-11.30)
[2021-11-23 16:55] LABS: Bun/Creatinine Ratio 16.8 (12.0-20.0); Calcium, Blood 8.3 mg/dL (8.5-10.1); Creatinine, Blood 0.83 mg/dL (0.40-1.00); Potassium, Blood 3.4 mmol/L (3.5-5.5)
[2021-11-23] MEDS ORDERED: ONDA4ODT MM (17:23)
== END 2021-11-23 18:55 | disposition home or self-care (01) ==
LOC: ER 13:53
PROVIDERS: Student in an Organized Health Care Education/Training Program
DX: U07.1 COVID-19 (principal); T74.11XA Adult physical abuse, confirmed, initial encounter; S06.0X0A Concussion without loss of consciousness, initial encounter; S50.12XA Contusion of left forearm, initial encounter; S00.12XA Contusion of left eyelid and periocular area, initial encounter; S30.1XXA Contusion of abdominal wall, initial encounter; J44.9 Chronic obstructive pulmonary disease, unspecified; I25.10 Atherosclerotic heart disease of native coronary artery without angina pectoris; E03.9 Hypothyroidism, unspecified; E78.5 Hyperlipidemia, unspecified; I11.0 Hypertensive heart disease with heart failure; I50.9 Heart failure, unspecified; F17.210 Nicotine dependence, cigarettes, uncomplicated; Z95.5 Presence of coronary angioplasty implant and graft; Z79.899 Other long term (current) drug therapy; Z79.01 Long term (current) use of anticoagulants; Z79.02 Long term (current) use of antithrombotics/antiplatelets; Z79.82 Long term (current) use of aspirin; Z88.5 Allergy status to narcotic agent; Z88.8 Allergy status to other drugs, medicaments and biological substances; Y04.2XXA Assault by strike against or bumped into by another person, initial encounter
CPT/HCPCS: 70450; 71260; 72125; 73090; 74177; 80048; 83690; 85025; A9270; J1885; J2765; Q9967

== ENCOUNTER 2021-12-12 15:40 | Inpatient (IN) | payer OTHER ==
[~2021-12-12] VITALS: Ht 167.6 cm; Wt 74.1 kg
[2021-12-12 17:48] LABS: Acetaminophen, Random <2.0 ug/mL (10.0-30.0); Alanine Aminotransfer (ALT/SGP 21 U/L (12-78); Albumin, Blood 3.4 g/dL (3.4-5.0); Alk Phos 97 U/L (50-136); Anion Gap 8 mmol/L (6-16); Aspartate Aminotrans (AST/SGOT 13 U/L (12-37); Bilirubin, Total 0.3 mg/dL (0.1-1.0); Blood Urea Nitrogen 14 mg/dL (8-24); Bun/Creatinine Ratio 12.7 (12.0-20.0); CO2, Blood 27 mmol/L (21-32); Calcium, Blood 8.8 mg/dL (8.5-10.1); Chloride, Blood 107 mmol/L (98-108); Ethanol (Alcohol), Blood, Med <3 mg/dL; Globulin, Blood 3.3 g/dL (2.2-4.0); Glomerular Filtration Rate 57 (60-); Glucose, Blood 115 mg/dL (70-99); Magnesium, Blood 1.7 mg/dL (1.6-2.4); Potassium, Blood 3.8 mmol/L (3.5-5.5); Salicylate 5.1 mg/dL (2.8-20.0); Sodium, Blood 142 mmol/L (136-145); Total Protein, Blood 6.7 g/dL (6.4-8.2)
[2021-12-12 18:41] LABS: Source, Urine Straight Cath
[2021-12-12 18:55] LABS: Appearance, Urine Clear (Clear); Bilirubin, Urine Neg (Neg); Blood, Urine Neg (Neg); Glucose Qualitative, Urine Neg (Neg); Ketones, Urine Neg (Neg); Leukocyte Esterase, Urine Neg (Neg); Nitrite, Urine Neg (Neg); Protein, Urine Neg (Neg); Specific Gravity, Urine 1.015 (1.003-1.022); Urobilinogen, Urine NORM (Normal); pH, Urine 6.5 (5.0-8.0)
[2021-12-12 19:31] LABS: U Amphetamine Screen Not Detected; U Barbituate Screen Not Detected; U Benzodiazapine Screen Not Detected; U Methamphetamine Screen Not Detected
[2021-12-12 19:32] LABS: U Buprenorphine Screen Not Detected; U Cannabinoids Screen DETECTED; U Cocaine Screen Not Detected; U Methadone Screen Not Detected; U Opiates Screen Not Detected; U Oxycodone Screen Not Detected; U Phencyclidine Screen Not Detected; U Propoxyphene Screen Not Detected
[2021-12-12 20:00] LABS: Color, Urine Pale Yellow (P-Yellow)
[2021-12-12 20:04] LABS: PO2 Arterial 116 mmHg (80-100); pH Blood Arterial 7.32 (7.35-7.45)
[2021-12-12 20:34] LABS: CPK Creatine Kinase 51 U/L (26-193)
[2021-12-12 22:43] LABS: CPK Creatine Kinase 68 U/L (26-193)
[2021-12-13 04:21] LABS: BASOPHILS ABSOLUTE AUTO 0.05 K/mm3 (0.00-0.23); BASOPHILS PERCENT AUTO 1 % (0-2); EOSINOPHILS ABSOLUTE AUTO 0.22 K/mm3 (0.00-0.68); EOSINOPHILS PERCENT AUTO 3 % (0-6); Hematocrit 28.5 % (33.0-51.0); IMMATURE GRAN ABSOLUTE AUTO 0.02 K/mm3 (0.00-0.10); IMMATURE GRAN PERCENT AUTO 0 % (0-1); LYMPHOCYTES ABSOLUTE AUTO 2.21 K/mm3 (0.84-5.20); LYMPHOCYTES PERCENT AUTO 26 % (21-46); MONOCYTES ABSOLUTE AUTO 0.69 K/mm3 (0.16-1.47); MONOCYTES PERCENT AUTO 8 % (4-13); Mean Corpuscular HGB 26.9 pg (26.0-34.0); Mean Corpuscular HGB Conc 31.6 g/dL (31.5-36.5); Mean Corpuscular Volume 85 fL (80-100); Mean Platelet Volume 8.7 fL (9.1-12.4); NEUTROPHILS ABSOLUTE AUTO 5.32 K/mm3 (1.96-9.15); NEUTROPHILS PERCENT AUTO 63 % (41-73); Platelet Count 276 K/mm3 (150-400); RDW Coefficient Variation 15.1 % (11.7-14.2); RDW Standard Deviation 46.7 fL (35.1-46.3); Red Blood Cell Count 3.35 M/mm3 (3.80-5.20); White Blood Cell Count 8.51 K/mm3 (4.00-11.30)
[2021-12-13 04:39] LABS: Bilirubin, Total 0.5 mg/dL (0.1-1.0); Bun/Creatinine Ratio 17.1 (12.0-20.0); Calcium, Blood 7.9 mg/dL (8.5-10.1); Creatinine, Blood 0.7 mg/dL (0.40-1.00); Globulin, Blood 3.1 g/dL (2.2-4.0); Potassium, Blood 3.5 mmol/L (3.5-5.5); Total Protein, Blood 6.1 g/dL (6.4-8.2)
[2021-12-13 04:48] LABS: CPK Creatine Kinase 51 U/L (26-193)
--- NOTE | 2021-12-13 06:04 | NUR ---
SHIFT SUMMARY PT RESTED AFTER ADMISSION FROM ED. ALERT AND ORIENTED, ABLE TO MAKE NEEDS KNOWN. COOPERATIVE WITH PLAN OF CARE. SATS >90% ON ROOM AIR. TELE READS NSR. DETAILS OF HOW SHE GOT HERE ISN'T ENTIRELY CLEAR FOR HER, BUT SHE REMAINS ALERT AND ORIENTED. MENTATION HAS SIGNIFICANTLY IMPROVED DURING THE NIGHT. TEARFUL REGARDING SITUATION. BRUISING ALL OVER BODY, PT VERY SORE. STAND BY ASSIST TO BATHROOM. PAIN X1. VSS. CALL LIGHT WITHIN REACH, BED IN LOWEST POSITION. WILL CONTINUE TO MONITOR.
--- NOTE | 2021-12-13 09:10 | NUR ---
AMA- Pt getting dressed, pulled out IV and pulled off tele. States that she is leaving to go have a cigarette. Explained that we would be able to get her a nicotine patch or gum and that we are a smoke free campus. Pt stated "no, I'm leaving, I'm sorry but I am going." Physician was notified. Pt given AMA paperwork with risks of leaving AMA reviewed. These include acute encephalopathy, hypothyriodism, comma and . Pt denied questions, signed AMA form and ambulated out. When asked if she had a ride Pt stated "no, but I have my 2 feet."
== END 2021-12-13 09:13 | disposition left against medical advice (07) | DRG 92 ==
LOC: ER 15:40 → PCU 18:22 → ERHOLD 18:22 → ER 20:04 → SURS 20:04 → PCU 22:41
PROVIDERS: Student in an Organized Health Care Education/Training Program; ADMIT Internal Medicine
DX: G92.8 Other toxic encephalopathy (principal); I50.22 Chronic systolic (congestive) heart failure; T76.11XA Adult physical abuse, suspected, initial encounter; E78.00 Pure hypercholesterolemia, unspecified; E03.9 Hypothyroidism, unspecified; G43.909 Migraine, unspecified, not intractable, without status migrainosus; E11.9 Type 2 diabetes mellitus without complications; F17.210 Nicotine dependence, cigarettes, uncomplicated; I11.0 Hypertensive heart disease with heart failure; I95.9 Hypotension, unspecified; J44.9 Chronic obstructive pulmonary disease, unspecified; I25.10 Atherosclerotic heart disease of native coronary artery without angina pectoris; I48.0 Paroxysmal atrial fibrillation; K21.9 Gastro-esophageal reflux disease without esophagitis; F32.A Depression, unspecified; F41.9 Anxiety disorder, unspecified; Z95.5 Presence of coronary angioplasty implant and graft; Z86.73 Personal history of transient ischemic attack (TIA), and cerebral infarction without residual deficits; Z90.49 Acquired absence of other specified parts of digestive tract; Z90.89 Acquired absence of other organs; Z90.710 Acquired absence of both cervix and uterus; Z98.890 Other specified postprocedural states; Z85.828 Personal history of other malignant neoplasm of skin; Z88.8 Allergy status to other drugs, medicaments and biological substances; Z79.82 Long term (current) use of aspirin; Z79.02 Long term (current) use of antithrombotics/antiplatelets; Z79.899 Other long term (current) drug therapy; Y09 Assault by unspecified means
CPT/HCPCS: 36415; 36600; 70450; 71045; 72125; 80053; 81003; 82140; 82550; 82803; 82947; 83735; 83880; 84439; 84443; 84484; 85025; 93005; 93010; 94640; 94664; 94760; 96372-59; 96374; 96375; 99285-25; A9270; G0480; J1610; J1650; J7030; P9612

== ENCOUNTER 2021-12-13 22:56 | Emergency (ER) | payer OTHER ==
[~2021-12-13] VITALS: Ht 170.2 cm; Wt 77.1 kg
[2021-12-13 23:47] LABS: BASOPHILS ABSOLUTE AUTO 0.06 K/mm3 (0.00-0.23); BASOPHILS PERCENT AUTO 1 % (0-2); EOSINOPHILS ABSOLUTE AUTO 0.32 K/mm3 (0.00-0.68); EOSINOPHILS PERCENT AUTO 4 % (0-6); Hematocrit 26.6 % (33.0-51.0); Hemoglobin 8.3 g/dL (11.5-16.0); IMMATURE GRAN ABSOLUTE AUTO 0.02 K/mm3 (0.00-0.10); IMMATURE GRAN PERCENT AUTO 0 % (0-1); LYMPHOCYTES ABSOLUTE AUTO 2.32 K/mm3 (0.84-5.20); LYMPHOCYTES PERCENT AUTO 30 % (21-46); MONOCYTES ABSOLUTE AUTO 0.66 K/mm3 (0.16-1.47); MONOCYTES PERCENT AUTO 9 % (4-13); Mean Corpuscular HGB 26.4 pg (26.0-34.0); Mean Corpuscular HGB Conc 31.2 g/dL (31.5-36.5); Mean Corpuscular Volume 85 fL (80-100); Mean Platelet Volume 8.8 fL (9.1-12.4); NEUTROPHILS ABSOLUTE AUTO 4.36 K/mm3 (1.96-9.15); NEUTROPHILS PERCENT AUTO 56 % (41-73); Platelet Count 297 K/mm3 (150-400); RDW Coefficient Variation 14.9 % (11.7-14.2); RDW Standard Deviation 45.9 fL (35.1-46.3); Red Blood Cell Count 3.14 M/mm3 (3.80-5.20); White Blood Cell Count 7.74 K/mm3 (4.00-11.30)
[2021-12-14] LABS: Albumin, Blood 3.2 g/dL (3.4-5.0); Bilirubin, Total 0.2 mg/dL (0.1-1.0); Bun/Creatinine Ratio 16.9 (12.0-20.0); Calcium, Blood 8.6 mg/dL (8.5-10.1); Creatinine, Blood 0.77 mg/dL (0.40-1.00); Globulin, Blood 3.1 g/dL (2.2-4.0); Potassium, Blood 3.5 mmol/L (3.5-5.5); Total Protein, Blood 6.3 g/dL (6.4-8.2)
[2021-12-14 00:52] LABS: Percent Saturation 5.8 % (15.0-50.0)
== END 2021-12-14 04:16 | disposition home or self-care (01) ==
LOC: ER 22:56
PROVIDERS: Student in an Organized Health Care Education/Training Program
DX: R42 Dizziness and giddiness (principal); T46.3X5A Adverse effect of coronary vasodilators, initial encounter; R07.9 Chest pain, unspecified; J44.9 Chronic obstructive pulmonary disease, unspecified; I25.10 Atherosclerotic heart disease of native coronary artery without angina pectoris; E78.5 Hyperlipidemia, unspecified; I10 Essential (primary) hypertension; F17.210 Nicotine dependence, cigarettes, uncomplicated; Z88.8 Allergy status to other drugs, medicaments and biological substances; Z79.899 Other long term (current) drug therapy; Z79.82 Long term (current) use of aspirin; Z79.01 Long term (current) use of anticoagulants
CPT/HCPCS: 71046; 80053; 82728; 83540; 83550; 84484; 85025; 93005; 93010; 99285-25

== ENCOUNTER 2021-12-23 23:05 | Emergency (ER) | payer OTHER ==
[~2021-12-23] VITALS: Ht 165.1 cm; Wt 65.8 kg
== END 2021-12-23 23:31 | disposition home or self-care (01) ==
LOC: ER 23:05
DX: S50.12XA Contusion of left forearm, initial encounter (principal); J44.9 Chronic obstructive pulmonary disease, unspecified; I25.10 Atherosclerotic heart disease of native coronary artery without angina pectoris; E03.9 Hypothyroidism, unspecified; E78.5 Hyperlipidemia, unspecified; I11.0 Hypertensive heart disease with heart failure; I50.9 Heart failure, unspecified; Z95.5 Presence of coronary angioplasty implant and graft; Z79.899 Other long term (current) drug therapy; Z79.02 Long term (current) use of antithrombotics/antiplatelets; Z79.82 Long term (current) use of aspirin; Z88.5 Allergy status to narcotic agent; Z88.8 Allergy status to other drugs, medicaments and biological substances; X58.XXXA Exposure to other specified factors, initial encounter
CPT/HCPCS: 99283

== ENCOUNTER 2022-04-06 15:45 | Inpatient (IN) | payer OTHER ==
[~2022-04-06] VITALS: Ht 170.2 cm; Wt 67.0 kg
[2022-04-06 17:23] LABS: Influenza B, PCR NEGATIVE (NEGATIVE); Resp Syncytial Virus, PCR NEGATIVE (NEGATIVE); SARS-Cov-2 (COVID-19) PCR, MMC NEGATIVE (NEGATIVE)
[2022-04-06 17:25] LABS: Influenza A, PCR POSITIVE (NEGATIVE)
[2022-04-06 17:46] LABS: BASOPHILS ABSOLUTE AUTO 0.06 K/mm3 (0.00-0.23); BASOPHILS PERCENT AUTO 1 % (0-2); EOSINOPHILS ABSOLUTE AUTO 0.13 K/mm3 (0.00-0.68); EOSINOPHILS PERCENT AUTO 1 % (0-6); Hematocrit 35.2 % (33.0-51.0); Hemoglobin 11.3 g/dL (11.5-16.0); IMMATURE GRAN ABSOLUTE AUTO 0.06 K/mm3 (0.00-0.10); IMMATURE GRAN PERCENT AUTO 1 % (0-1); LYMPHOCYTES ABSOLUTE AUTO 0.83 K/mm3 (0.84-5.20); LYMPHOCYTES PERCENT AUTO 8 % (21-46); MONOCYTES ABSOLUTE AUTO 0.64 K/mm3 (0.16-1.47); MONOCYTES PERCENT AUTO 6 % (4-13); Mean Corpuscular HGB 26.5 pg (26.0-34.0); Mean Corpuscular HGB Conc 32.1 g/dL (31.5-36.5); Mean Corpuscular Volume 82 fL (80-100); Mean Platelet Volume 9.3 fL (9.1-12.4); NEUTROPHILS ABSOLUTE AUTO 8.45 K/mm3 (1.96-9.15); NEUTROPHILS PERCENT AUTO 83 % (41-73); Platelet Count 271 K/mm3 (150-400); RDW Coefficient Variation 15.2 % (11.7-14.2); RDW Standard Deviation 45.7 fL (35.1-46.3); Red Blood Cell Count 4.27 M/mm3 (3.80-5.20); White Blood Cell Count 10.17 K/mm3 (4.00-11.30)
[2022-04-06 18:22] LABS: Albumin, Blood 3.3 g/dL (3.4-5.0); Albumin/Globulin Ratio 0.8 (0.8-1.8); Bilirubin, Total 0.6 mg/dL (0.1-1.0); Bun/Creatinine Ratio 19.3 (12.0-20.0); Calcium, Blood 8.8 mg/dL (8.5-10.1); Creatinine, Blood 0.83 mg/dL (0.40-1.00); Total Protein, Blood 7.3 g/dL (6.4-8.2)
[2022-04-06 21:44] LABS: U Amphetamine Screen DETECTED; U Barbituate Screen Not Detected; U Benzodiazapine Screen Not Detected; U Buprenorphine Screen Not Detected; U Cannabinoids Screen DETECTED; U Cocaine Screen Not Detected; U Methadone Screen Not Detected; U Methamphetamine Screen DETECTED; U Opiates Screen Not Detected; U Oxycodone Screen Not Detected; U Phencyclidine Screen Not Detected; U Propoxyphene Screen Not Detected
[2022-04-06] MEDS ORDERED: DICLOFENAC SOD100 G1 TOP (22:10)
--- NOTE | 2022-04-07 04:43 | NUR ---
ADMIT FROM ED. PT HAS INFLUENZA A. PT HAD RIPPED OUT IV IN ED AND A NEW ONE PLACED IN LFA ON MED FLOOR UPON ARRIVAL. PT A/O X 2. PT IS CONFUSED AND TRIES GETTING OUT OF BED. PT IS ON 4L/NC. PT IS SBA IN ROOM. PT IS CURRENTLY RESTING WITH BED ALARM ON, BED RAILS UP, BED IN LOWEST POSITION, AND CALL LIGHT WITHIN REACH.
[2022-04-07 05:47] LABS: BASOPHILS ABSOLUTE AUTO 0.04 K/mm3 (0.00-0.23); BASOPHILS PERCENT AUTO 0 % (0-2); EOSINOPHILS PERCENT AUTO 0 % (0-6); Hematocrit 30.4 % (33.0-51.0); Hemoglobin 9.8 g/dL (11.5-16.0); IMMATURE GRAN ABSOLUTE AUTO 0.03 K/mm3 (0.00-0.10); IMMATURE GRAN PERCENT AUTO 0 % (0-1); LYMPHOCYTES ABSOLUTE AUTO 0.47 K/mm3 (0.84-5.20); LYMPHOCYTES PERCENT AUTO 4 % (21-46); MONOCYTES ABSOLUTE AUTO 0.74 K/mm3 (0.16-1.47); MONOCYTES PERCENT AUTO 7 % (4-13); Mean Corpuscular HGB 26.3 pg (26.0-34.0); Mean Corpuscular HGB Conc 32.2 g/dL (31.5-36.5); Mean Corpuscular Volume 82 fL (80-100); Mean Platelet Volume 9.1 fL (9.1-12.4); NEUTROPHILS PERCENT AUTO 88 % (41-73); Platelet Count 305 K/mm3 (150-400); RDW Coefficient Variation 15.3 % (11.7-14.2); RDW Standard Deviation 45.3 fL (35.1-46.3); Red Blood Cell Count 3.73 M/mm3 (3.80-5.20); White Blood Cell Count 10.98 K/mm3 (4.00-11.30)
[2022-04-07 06:22] LABS: Albumin, Blood 3.2 g/dL (3.4-5.0); Albumin/Globulin Ratio 0.9 (0.8-1.8); Bilirubin, Total 0.9 mg/dL (0.1-1.0); Bun/Creatinine Ratio 20.7 (12.0-20.0); Calcium, Blood 8.7 mg/dL (8.5-10.1); Creatinine, Blood 0.87 mg/dL (0.40-1.00); Globulin, Blood 3.7 g/dL (2.2-4.0); Potassium, Blood 3.6 mmol/L (3.5-5.5); Total Protein, Blood 6.9 g/dL (6.4-8.2)
[2022-04-07 13:38] LABS: CPK Creatine Kinase 88 U/L (26-193)
--- NOTE | 2022-04-07 16:32 | NUR ---
TRANSFER: REPORT GIVEN TO NURSE SOLIS. PT TRANSFER TO PCU 05 VIA HOSPITAL BED. CONSULT CALLED TO CARDIOLOGY. WILL BE CALLING DAUGHTERS TO LET THEM KNOW ABOUT TRANSFER. ALL BELONGINGS SENT WITH PT.
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
--- NOTE | 2022-04-07 16:56 | NUR ---
THIS RACING CAR DRIVER HAS REVIEWED ALL ASSESSMENTS AND NOTES BY DELL BENNETT AND AGREES WITH THEM.
[2022-04-08 04:13] LABS: Hematocrit 29.4 % (33.0-51.0); Hemoglobin 9.3 g/dL (11.5-16.0); Mean Corpuscular HGB 26.3 pg (26.0-34.0); Mean Corpuscular HGB Conc 31.6 g/dL (31.5-36.5); Mean Corpuscular Volume 83 fL (80-100); Mean Platelet Volume 9.4 fL (9.1-12.4); Platelet Count 269 K/mm3 (150-400); RDW Coefficient Variation 15.4 % (11.7-14.2); RDW Standard Deviation 46.6 fL (35.1-46.3); Red Blood Cell Count 3.53 M/mm3 (3.80-5.20); White Blood Cell Count 6.15 K/mm3 (4.00-11.30)
[2022-04-08 04:40] LABS: Albumin, Blood 2.7 g/dL (3.4-5.0); Anion Gap 6 mmol/L (6-16); Blood Urea Nitrogen 28 mg/dL (8-24); CO2, Blood 29 mmol/L (21-32); Calcium, Blood 8.7 mg/dL (8.5-10.1); Chloride, Blood 101 mmol/L (98-108); Glomerular Filtration Rate 84 (60-); Glucose, Blood 147 mg/dL (70-99); Phosphorus, Blood 2.9 mg/dL (2.5-4.9); Potassium, Blood 3.5 mmol/L (3.5-5.5); Sodium, Blood 136 mmol/L (136-145)
--- NOTE | 2022-04-08 05:20 | NUR ---
Shift summary: At the beginning of the shift the patient was somnolent and BPs were soft. The pt was A&Ox3, but would fall asleep in between questions asked. When pt was positioned on her back and BP was taken, her BP's were soft but MAPs were >65. Informed MD of pt status and the 1200mg of gabapentin given twice earlier in the day and maybe that could have been a contributing factor; the night dose was held Around midnight pt was a slightly more alert and around 4am pt was able to get up to the restroom and have a full conversation with me without falling asleep mid-sentence. She has been in SR/ST overnight. BPs soft. Troponin trending down. NPO since midnight for possible heart cath this AM. Pt able to walk with standby assistance to bathroom and gait is steady is on and bed is locked and in low position.
[2022-04-09 04:05] LABS: Hematocrit 29.5 % (33.0-51.0); Hemoglobin 9.3 g/dL (11.5-16.0)
[2022-04-09 04:32] LABS: Albumin, Blood 2.6 g/dL (3.4-5.0); Anion Gap 8 mmol/L (6-16); Blood Urea Nitrogen 26 mg/dL (8-24); Bun/Creatinine Ratio 29.3 (12.0-20.0); CO2, Blood 28 mmol/L (21-32); Calcium, Blood 8.6 mg/dL (8.5-10.1); Chloride, Blood 101 mmol/L (98-108); Creatinine, Blood 0.89 mg/dL (0.40-1.00); Glomerular Filtration Rate 74 (60-); Glucose, Blood 143 mg/dL (70-99); Phosphorus, Blood 3.5 mg/dL (2.5-4.9); Potassium, Blood 3.2 mmol/L (3.5-5.5); Sodium, Blood 137 mmol/L (136-145)
--- NOTE | 2022-04-09 05:36 | NUR ---
NO ACUTE EVENTS OVERNIGHT LAST NIGHT. MS. FARRAR REMAINS ON ROOM AIR DURING THE DAY WITH SPOT CHECKS OF OXYGEN SATURATIONS GREATER THAN 92%, HIGH 98%. SHE DOES CONTINUE TO APPLY 2 LPM WHILE SLEEPING PER HER HOME ROUTINE. WITHOUT IT, MS. FARRAR STATES THAT SHE FEELS SHORT OF BREATH AND CANNOT SLEEP (WHICH IS HER SAME EXPERIENCE AT HOME). MS. FARRAR HAS BEEN NPO SINCE MIDNIGHT IN PREPARATION FOR CARDIAC CATHETERIZATION TODAY.
--- NOTE | 2022-04-09 17:57 | NUR ---
SHIFT SUMMARY PT ALERT, ANXIOUS. SP02>90% ON RA, 2LNC WHEN SLEEPING FOR COMFORT. BP SOFT THIS AM, SEE VITALS. UP TO BATHROOM TO VOID. HAD SHOWER THIS MORNING. C/O OF BACK PAIN, HEATING PAD APPLIED W/ SUCCESSFUL RELIEF OF PAIN. NPO THIS AM FOR CARDIAC CATH. LEFT ROOM TO SOLID WASTE MANAGEMENT ENGINEER APPROX 0930. PT ARRIVED BACK TO ROOM AT APPROX 1230. PT TEARY, CRYING. PT STATES, "YOU ALL ARE MIRACLE WORKESR. i THOUGHT I WAS GOING TO ." R RADIAL SITE, NO BRUISING, NO BLEEDING, NO HEMATOMA. ARM BOARD IN PLACE. RECOVERY VITALS TAKEN. ARM BAND DEFLATED POST 3 HOURS PER TRANSFER RN INSTRUCTIONS. TR BAND FULLY DEFLATED AT 1745. NO CHANGES TO SITE, ARM BOARD IN PLACE. PT EDUCATED ON POST RADIAL SITE CARE. PT VERBALIZED UNDERSTANDING. PT'S DAUGHTER, RONEL AND KIDS IN ROOM THIS EVENING. PT SITTING IN CHAIR CURRENTLY. CALL LIGHT IN REACH.
--- NOTE | 2022-04-09 19:08 | NUR ---
UPDATE LASIX HELD PER MD OROZCO. CALL PLACED TO MD OROZCO TO VERIFY EVENING DOSE OF XARELTO HELD OR GIVEN. DOSE VERIFIED. MD OROZCO WITH ORDERS TO GIVE XARELTO LONG R RADIAL SITE NOT BLEEDING. SITE SHOWS NO BLEEDING, NO HEMATOMA. ARM BOARD IN PLACE.
[2022-04-10 05:54] LABS: Bun/Creatinine Ratio 27.2 (12.0-20.0); Calcium, Blood 8.6 mg/dL (8.5-10.1); Creatinine, Blood 0.85 mg/dL (0.40-1.00); Potassium, Blood 3.9 mmol/L (3.5-5.5)
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
[2022-04-10] MEDS ORDERED: DOCU100 PO (12:17)
[2022-04-10] MEDS ORDERED: ASCO500 PO (12:18)
[2022-04-10] MEDS ORDERED: FERSU300 PO (12:19)
[2022-04-10] MEDS ORDERED: Tamiflu30 MG PO (12:51)
[2022-04-10] MEDS ORDERED: MIRALAX17 GM PO (12:52)
[2022-04-10] MEDS ORDERED: SPIR25 PO (12:53)
[2022-04-10] MEDS ORDERED: ANORO ELLIPTA1 EACH INH (12:54)
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
== END 2022-04-10 13:25 | disposition home or self-care (01) | DRG 246 ==
LOC: ER 15:45 → MEDS 15:46 → PCU 04-07 16:21
PROVIDERS: Emergency Medicine; Internal Medicine; Internal Medicine Cardiovascular Disease; Student in an Organized Health Care Education/Training Program; ADMIT Internal Medicine
PROC: 027135Z Dilation of Coronary Artery, Two Arteries with Two Drug-eluting Intraluminal Devices, Percutaneous Approach (ICD-10-PCS; principal; 2022-04-09)
PROC: 4A023N7 Measurement of Cardiac Sampling and Pressure, Left Heart, Percutaneous Approach (ICD-10-PCS; 2022-04-09)
PROC: B215YZZ Fluoroscopy of Left Heart using Other Contrast (ICD-10-PCS; 2022-04-09)
PROC: B211YZZ Fluoroscopy of Multiple Coronary Arteries using Other Contrast (ICD-10-PCS; 2022-04-09)
PROC: B24BZZ3 Ultrasonography of Heart with Aorta, Intravascular (ICD-10-PCS; 2022-04-09)
DX: I11.0 Hypertensive heart disease with heart failure (principal); I21.A1 Myocardial infarction type 2; I50.43 Acute on chronic combined systolic (congestive) and diastolic (congestive) heart failure; J96.21 Acute and chronic respiratory failure with hypoxia; I48.20 Chronic atrial fibrillation, unspecified; J10.1 Influenza due to other identified influenza virus with other respiratory manifestations; I42.0 Dilated cardiomyopathy; Z20.822 Contact with and (suspected) exposure to COVID-19; D50.9 Iron deficiency anemia, unspecified; F19.10 Other psychoactive substance abuse, uncomplicated; I25.10 Atherosclerotic heart disease of native coronary artery without angina pectoris; J44.9 Chronic obstructive pulmonary disease, unspecified; I48.0 Paroxysmal atrial fibrillation; K21.9 Gastro-esophageal reflux disease without esophagitis; I73.9 Peripheral vascular disease, unspecified; F17.210 Nicotine dependence, cigarettes, uncomplicated; F41.8 Other specified anxiety disorders; G43.909 Migraine, unspecified, not intractable, without status migrainosus; M54.16 Radiculopathy, lumbar region; E03.9 Hypothyroidism, unspecified; G62.9 Polyneuropathy, unspecified; F15.10 Other stimulant abuse, uncomplicated; F12.10 Cannabis abuse, uncomplicated; R73.03 Prediabetes; Z86.14 Personal history of Methicillin resistant Staphylococcus aureus infection; Z86.010 Personal history of colon polyps; Z90.49 Acquired absence of other specified parts of digestive tract; Z90.89 Acquired absence of other organs; Z88.8 Allergy status to other drugs, medicaments and biological substances; Z79.01 Long term (current) use of anticoagulants; Z79.82 Long term (current) use of aspirin; Z79.899 Other long term (current) drug therapy
CPT/HCPCS: 0241U; 36415; 71045; 76937; 80048; 80053; 80069; 82550; 83880; 84484; 85014; 85018; 85025; 85027; 85347; 92978; 92979; 93005; 93010; 93306; 93458; 94640; 94664; 94760; 94762; 96372; 96374; 96375; 99152; 99153; 99285-25; A9270; C1725; C1753; C1769; C1874; C1887; C1894; C9600; C9601; G0378; J1644; J1650; J1885; J1940; J2250; J2405; J2916; J3010; J7030; J7050; Q9967

== ENCOUNTER 2022-04-24 18:06 | Emergency (ER) | payer OTHER ==
[~2022-04-24] VITALS: Ht 170.2 cm; Wt 68.0 kg
[~2022-04-24 18:06] MED LIST changes: +ASCO500 PO; +DICLOFENAC SOD100 G1 TOP; +DOCU100 PO; +FERSU300 PO; +MIRALAX17 GM PO; +SPIR25 PO; +Tamiflu30 MG PO
[2022-04-24 18:21] LABS: BASOPHILS PERCENT AUTO 1 % (0-2); EOSINOPHILS ABSOLUTE AUTO 0.19 K/mm3 (0.00-0.68); EOSINOPHILS PERCENT AUTO 2 % (0-6); Hematocrit 37.5 % (33.0-51.0); Hemoglobin 11.5 g/dL (11.5-16.0); IMMATURE GRAN ABSOLUTE AUTO 0.04 K/mm3 (0.00-0.10); IMMATURE GRAN PERCENT AUTO 0 % (0-1); LYMPHOCYTES ABSOLUTE AUTO 1.72 K/mm3 (0.84-5.20); LYMPHOCYTES PERCENT AUTO 14 % (21-46); MONOCYTES ABSOLUTE AUTO 0.82 K/mm3 (0.16-1.47); MONOCYTES PERCENT AUTO 7 % (4-13); Mean Corpuscular HGB 25.7 pg (26.0-34.0); Mean Corpuscular HGB Conc 30.7 g/dL (31.5-36.5); Mean Corpuscular Volume 84 fL (80-100); NEUTROPHILS ABSOLUTE AUTO 9.21 K/mm3 (1.96-9.15); NEUTROPHILS PERCENT AUTO 76 % (41-73); Platelet Count 332 K/mm3 (150-400); RDW Coefficient Variation 15.2 % (11.7-14.2); Red Blood Cell Count 4.47 M/mm3 (3.80-5.20); White Blood Cell Count 12.08 K/mm3 (4.00-11.30)
[2022-04-24 18:31] LABS: Base Excess Venous 1.2 mmol/L; Bicarbonate Venous 24.5 mmol/L (24.0-30.0); PCO2 Venous 48.7 mmHg (38-42); pH Blood Venous 7.35 (7.34-7.37)
[2022-04-24 18:41] LABS: Albumin, Blood 3.4 g/dL (3.4-5.0); Albumin/Globulin Ratio 0.9 (0.8-1.8); Bilirubin, Total 0.5 mg/dL (0.1-1.0); Bun/Creatinine Ratio 25.6 (12.0-20.0); Calcium, Blood 9.2 mg/dL (8.5-10.1); Creatinine, Blood 0.74 mg/dL (0.40-1.00); Globulin, Blood 3.8 g/dL (2.2-4.0); Potassium, Blood 3.9 mmol/L (3.5-5.5); Total Protein, Blood 7.2 g/dL (6.4-8.2)
== END 2022-04-24 23:30 | disposition home or self-care (01) ==
LOC: ER 18:06
PROVIDERS: Emergency Medicine
DX: I11.0 Hypertensive heart disease with heart failure (principal); I50.9 Heart failure, unspecified; J44.9 Chronic obstructive pulmonary disease, unspecified; I25.10 Atherosclerotic heart disease of native coronary artery without angina pectoris; E03.9 Hypothyroidism, unspecified; F17.200 Nicotine dependence, unspecified, uncomplicated; Z88.8 Allergy status to other drugs, medicaments and biological substances; Z79.899 Other long term (current) drug therapy; Z79.82 Long term (current) use of aspirin
CPT/HCPCS: 36415; 71045; 80053; 82803; 83880; 84484; 85025; 93005; 93010; 94644; 94664; J1940; J2930

== ENCOUNTER 2022-05-30 08:12 | Day surgery (SDC) | payer OTHER ==
[~2022-05-30] VITALS: Ht 170.2 cm; Wt 73.0 kg
[2022-05-30] MEDS ORDERED: NORT25 PO (09:23)
[2022-05-30] MEDS ORDERED: Amlodipine Bes2.5 MG PO (09:24)
--- NOTE | 2022-05-30 12:05 | NUR ---
PT TO RECOVERY ROOM POST PROCEDURE. PT AWAKE AND CONVERSING APPROPRIATELY; DENIES CHEST PAIN POST PROCEDURE. MONITOR SR 90'S, B/P 119/85, SPO2 92% RA, AFEBRILE. R RADIAL SITE NO SWELLING/HEMATOMA, TR BAND IN PLACE; RUE POSITIVE PLEUTH POST TR BAND PLACEMENT. PT TAKING SIPS OF WATER WITHOUT ISSUE.
--- NOTE | 2022-05-30 15:05 | NUR ---
PT AMB TO BATHROOM, GAIT STEADY; SITE UNCHANGED WITH ACTIVITY.
--- NOTE | 2022-05-30 15:15 | NUR ---
DR OROZCO IN TO DISCUSS PROCEDURE RESULTS AND MEDICATIONS WITH PATIENT AND FAMILY MEMBERS.
--- NOTE | 2022-05-30 15:55 | NUR ---
PT GOT DRESSED WITH ASSISTANCE, SITE UNCHANGED. TR BAND REMOVED, CLOTH DOT AND WRIST IMMOBILIZER PLACED; IV REMOVED-CANNULA INTACT.
--- NOTE | 2022-05-30 16:07 | NUR ---
PT AND FAMILY RECEIVED DISCHARGE INSTRUCTIONS, MED LIST AND AFTER CARE INSTRUCTIONS; VERBALIZED GOOD UNDERSTANDING. PT LEFT FACILITY VIA W/C, CONDITION STABLE.
== END 2022-05-30 16:26 | disposition home or self-care (01) ==
LOC: MHTC 08:12
DX: I25.118 Atherosclerotic heart disease of native coronary artery with other forms of angina pectoris (principal); I42.0 Dilated cardiomyopathy; I48.0 Paroxysmal atrial fibrillation; F19.10 Other psychoactive substance abuse, uncomplicated; I73.9 Peripheral vascular disease, unspecified; J44.9 Chronic obstructive pulmonary disease, unspecified; E78.5 Hyperlipidemia, unspecified; E11.9 Type 2 diabetes mellitus without complications; E03.9 Hypothyroidism, unspecified; I25.2 Old myocardial infarction; Z86.73 Personal history of transient ischemic attack (TIA), and cerebral infarction without residual deficits; Z79.01 Long term (current) use of anticoagulants; Z79.899 Other long term (current) drug therapy; Z88.8 Allergy status to other drugs, medicaments and biological substances; Z88.5 Allergy status to narcotic agent; Z91.041 Radiographic dye allergy status; Z87.891 Personal history of nicotine dependence
CPT/HCPCS: 37236; 37237; 76937; 85347; 93454; 99152; 99153; A9270; C1725; C1769; C1874; C1887; C1894; C9600; J1200; J1644; J1720; J2250; J3010; J7030; J7050; Q9967

== ENCOUNTER → 2023-05-18 | Outpatient (CLI) | payer MEDICARE, OTHER ==
[~2023-05-18] MED LIST changes: +ENTRESTO 97 MG1 EAC3 PO; +FUROSEMIDE20 MG PO; +JARDIANCE25 MG PO; +NORTRIPTYLINE H5012 PO; +PAXIL2010 PO; +SYNTHROID25 M12 PO; +TORS10 PO; +TRAZ50 PO; +XARELTO20 M1 PO
[2023-05-18 16:31] LABS: BASOPHILS ABSOLUTE AUTO 0.08 K/mm3 (0.00-0.23); BASOPHILS PERCENT AUTO 1 % (0-2); EOSINOPHILS ABSOLUTE AUTO 0.56 K/mm3 (0.00-0.68); EOSINOPHILS PERCENT AUTO 6 % (0-6); Hematocrit 31.9 % (33.0-51.0); Hemoglobin 9.8 g/dL (11.5-16.0); IMMATURE GRAN ABSOLUTE AUTO 0.02 K/mm3 (0.00-0.10); IMMATURE GRAN PERCENT AUTO 0 % (0-1); LYMPHOCYTES ABSOLUTE AUTO 1.94 K/mm3 (0.84-5.20); LYMPHOCYTES PERCENT AUTO 20 % (21-46); MONOCYTES ABSOLUTE AUTO 0.87 K/mm3 (0.16-1.47); MONOCYTES PERCENT AUTO 9 % (4-13); Mean Corpuscular HGB 25.2 pg (26.0-34.0); Mean Corpuscular HGB Conc 30.7 g/dL (31.5-36.5); Mean Corpuscular Volume 82 fL (80-100); Mean Platelet Volume 9.2 fL (9.1-12.4); NEUTROPHILS ABSOLUTE AUTO 6.27 K/mm3 (1.96-9.15); NEUTROPHILS PERCENT AUTO 65 % (41-73); NRBC ABSOLUTE 0.02 K/mm3 (0.00-0.02); NRBC Auto 0.2 /100 WBC (0.0-0.2); Platelet Count 313 K/mm3 (150-400); RDW Coefficient Variation 15.5 % (11.7-14.2); Red Blood Cell Count 3.89 M/mm3 (3.80-5.20); White Blood Cell Count 9.74 K/mm3 (4.00-11.30)
[2023-05-18 16:44] LABS: Albumin, Blood 3.4 g/dL (3.4-5.0); Albumin/Globulin Ratio 0.9 (0.8-1.8); Bilirubin, Total 0.3 mg/dL (0.1-1.0); Bun/Creatinine Ratio 16.4 (12.0-20.0); Calcium, Blood 9.2 mg/dL (8.5-10.1); Creatinine, Blood 1.46 mg/dL (0.40-1.00); Globulin, Blood 3.9 g/dL (2.2-4.0); Potassium, Blood 3.3 mmol/L (3.5-5.5); Total Protein, Blood 7.3 g/dL (6.4-8.2)
== END | disposition home or self-care (01) ==
LOC: LAB SHORT 16:24 → LAB 16:24
PROVIDERS: Physician Assistant
DX: R07.9 Chest pain, unspecified (principal)
CPT/HCPCS: 80053; 84484; 85025

== ENCOUNTER 2023-06-07 14:17 | Inpatient (IN) | payer MEDICARE, OTHER ==
[~2023-06-07] VITALS: Ht 167.6 cm; Wt 72.0 kg
[2023-06-07] VITALS (21 sets, daily range): BP systolic 90–111; BP diastolic 63–77
[2023-06-07] MEDS ORDERED: Naloxone HCl 1MG / ML 2ML SYR ONE (14:27)
[2023-06-07] MEDS ORDERED: Calcium Gluconate 10% 100 MG/ML INJ ONE (14:31)
[2023-06-07 14:35] LABS: Chloride (POC) 100 mmol/L (98-108); Creatinine (POC) 1.5 mg/dL (0.6-1.0); Glucose (ISTAT POC) 258 mg/dL (70-99); Hemoglobin (POC) 10.2 g/dL (12.0-16.0); Potassium (POC) 5.3 mmol/L (3.5-5.5); Sodium (POC) 131 mmol/L (135-148); Total CO2 (POC) 20 mmol/L (21-32)
[2023-06-07] MEDS ORDERED: NS IV SCH (14:35)
[2023-06-07] MEDS ORDERED: KETAMINE HCL IV SCH (14:35)
[2023-06-07] MEDS ORDERED: NS 1,000 ML IV ONE (14:36)
[2023-06-07] MEDS ORDERED: Glucagon 1 MG/KIT VIAL IV ONE (14:45)
[2023-06-07] MEDS ORDERED: Ipratropium Bromide INH 0.02% 0.5 mg/2.5ML Vial INH SCH (14:45)
[2023-06-07] MEDS ORDERED: MethylPREDNISolone Sod Succ 125 MG Vial IV ONE (14:45)
[2023-06-07] MEDS ORDERED: Albuterol 2.5 MG/3 ML VIAL INH ONE (14:45)
[2023-06-07 15:01] LABS: Base Excess Venous -7.1 mmol/L; Bicarbonate Venous 18.8 mmol/L (24.0-30.0); PCO2 Venous 52.6 mmHg (38-42)
[2023-06-07 15:02] LABS: pH Blood Venous 7.21 (7.34-7.37)
[2023-06-07 15:12] LABS: BASOPHILS ABSOLUTE AUTO 0.11 K/mm3 (0.00-0.23); BASOPHILS PERCENT AUTO 1 % (0-2); EOSINOPHILS ABSOLUTE AUTO 1.28 K/mm3 (0.00-0.68); EOSINOPHILS PERCENT AUTO 7 % (0-6); Hemoglobin 9.5 g/dL (11.5-16.0); IMMATURE GRAN ABSOLUTE AUTO 0.36 K/mm3 (0.00-0.10); IMMATURE GRAN PERCENT AUTO 2 % (0-1); LYMPHOCYTES ABSOLUTE AUTO 1.11 K/mm3 (0.84-5.20); LYMPHOCYTES PERCENT AUTO 6 % (21-46); MONOCYTES ABSOLUTE AUTO 1.75 K/mm3 (0.16-1.47); MONOCYTES PERCENT AUTO 9 % (4-13); Mean Corpuscular HGB 23.6 pg (26.0-34.0); Mean Corpuscular HGB Conc 28.8 g/dL (31.5-36.5); Mean Corpuscular Volume 82 fL (80-100); Mean Platelet Volume 10.2 fL (9.1-12.4); NEUTROPHILS ABSOLUTE AUTO 14.17 K/mm3 (1.96-9.15); NEUTROPHILS PERCENT AUTO 76 % (41-73); NRBC Auto 1.6 /100 WBC (0.0-0.2); Platelet Count 264 K/mm3 (150-400); RDW Coefficient Variation 17.1 % (11.7-14.2); RDW Standard Deviation 50.4 fL (35.1-46.3); Red Blood Cell Count 4.02 M/mm3 (3.80-5.20); White Blood Cell Count 18.78 K/mm3 (4.00-11.30)
[2023-06-07 15:31] LABS: Influenza A, PCR NEGATIVE (NEGATIVE); Influenza B, PCR NEGATIVE (NEGATIVE); Resp Syncytial Virus, PCR NEGATIVE (NEGATIVE); SARS-Cov-2 (COVID-19) PCR, MMC NEGATIVE (NEGATIVE)
[2023-06-07 15:42] LABS: U Amphetamine Screen DETECTED; U Barbituate Screen Not Detected; U Benzodiazapine Screen Not Detected; U Buprenorphine Screen Not Detected; U Cannabinoids Screen DETECTED; U Cocaine Screen Not Detected; U Methadone Screen Not Detected; U Methamphetamine Screen DETECTED; U Opiates Screen DETECTED; U Oxycodone Screen Not Detected; U Phencyclidine Screen Not Detected
[2023-06-07 15:44] LABS: Ethanol (Alcohol), Blood, Med <3 mg/dL; Magnesium, Blood 2.6 mg/dL (1.6-2.4); Salicylate <1.7 mg/dL (2.8-20.0)
[2023-06-07 15:48] LABS: Alanine Aminotransfer (ALT/SGP 264 U/L (12-78); Albumin, Blood 2.6 g/dL (3.4-5.0); Albumin/Globulin Ratio 0.7 (0.8-1.8); Alk Phos 223 U/L (50-136); Anion Gap 9 mmol/L (6-16); Aspartate Aminotrans (AST/SGOT 157 U/L (12-37); Bilirubin, Total 0.6 mg/dL (0.1-1.0); Blood Urea Nitrogen 43 mg/dL (8-24); Bun/Creatinine Ratio 30.7 (12.0-20.0); CO2, Blood 21 mmol/L (21-32); Calcium, Blood 8.1 mg/dL (8.5-10.1); Chloride, Blood 100 mmol/L (98-108); Globulin, Blood 3.6 g/dL (2.2-4.0); Glomerular Filtration Rate 42 (60-); Glucose, Blood 255 mg/dL (70-99); Potassium, Blood 4.8 mmol/L (3.5-5.5); Sodium, Blood 130 mmol/L (136-145); Total Protein, Blood 6.2 g/dL (6.4-8.2)
[2023-06-07 15:49] LABS: Acetaminophen, Random <2.0 ug/mL (10.0-30.0)
[2023-06-07] MEDS ORDERED: Vancomycin HCL 1,250 MG in NS 262.5 ML IV ONE (17:10)
[2023-06-07] MEDS ORDERED: Cefepime HCl 2,000 MG in NS 100 ML IV ONE (17:10)
[2023-06-07 17:52] LABS: Source, Urine Clean Catch
[2023-06-07 18:13] LABS: International Normalized Ratio 1.96; Prothrombin Time Results 19.8 Sec (9.7-11.5)
[2023-06-07 18:21] LABS: Appearance, Urine Cloudy (Clear); Bilirubin, Urine Neg (Neg); Blood, Urine 2+ (Neg); Color, Urine Yellow (P-Yellow); Glucose Qualitative, Urine 4+ (Neg); Ketones, Urine 1+ (Neg); Leukocyte Esterase, Urine 1+ (Neg); Nitrite, Urine Pos (Neg); Protein, Urine 4+ (Neg); Urobilinogen, Urine 1+ (Normal)
[2023-06-07 18:30] LABS: Bacteria Many /hpf; Squamous Epithelial Cells Few /hpf (Few); Transitional Epithelial Cells Few /hpf (0-Rare)
[2023-06-07] MEDS ORDERED: Acetaminophen 325 MG TABLET PT PRN (18:40)
[2023-06-07] MEDS ORDERED: Ondansetron HCl 2 MG / ML 2ML Vial IV PRN (18:40)
[2023-06-07] MEDS ORDERED: FLU VACC QS2023-24(6MOS UP)/PF 60 MCG/0.5 ML SYRINGE IM ONE (18:45)
[2023-06-07] MEDS ORDERED: FentaNYL Citrate 50 MCG/ML 2 ML Injection IV PRN (18:45)
[2023-06-07] MEDS ORDERED: Albuterol 2.5 MG/3 ML VIAL INH PRN (18:50)
[2023-06-07] MEDS ORDERED: Vasopressin 50 UNITS in NS 50 ML IV SCH (18:50)
[2023-06-07] MEDS ORDERED: propofoL 100 ML IV SCH (18:50)
[2023-06-07] MEDS ORDERED: Hydrogen Peroxide 1.5 % Solution MT SCH (20:00)
[2023-06-07] MEDS ORDERED: CefTRIAXone Sodium 1,000 MG in NS 50 ML IV SCH (20:00)
[2023-06-07] MEDS ORDERED: NS 250 ML IV PRN (20:25)
[2023-06-07 21:39] LABS: Base Excess Venous -1.9 mmol/L; Bicarbonate Venous 22.6 mmol/L (24.0-30.0); PCO2 Venous 50.9 mmHg (38-42); pH Blood Venous 7.29 (7.34-7.37)
[2023-06-07] MEDS ORDERED: EPINEPhrine HCl 0.1 MG/ML 10ML SYR IV ONE (22:21)
--- NOTE | 2023-06-07 23:27 | NUR ---
ASSUMED CARE CARE WAS ASSUMED OF PT AT 1900, REPORT GIVEN BY MISAEL SHARPE. PT INTUBATED AND SEDATED, PROPOFOL GTT INFUSING, SEE FLOWSHEET. PT WITHDRAWS FROM PAIN AND SITS UP WHEN PHYSICALLY STIMULATED. PT NOT FOLLOWING COMMANDS. PT REMAINS IN BILATERAL SOFT WRIST RESTRAINTS FOR SAFETY. RASS -3, CPOT 0. POSITIVE GAG AND COUGH REFLEX. VENT SETTINGS AC/VC+ 16/400/5/35%, O2 SATS > 95%. CARDIAC MONITORING REFLECTS NSR, HR 70s-80s. LEVOPHED, EPINEPHERINE, AND VASOPRESSIN INFUSING FOR MAP GOAL > 65, SEE FLOWSHEET FOR TITRATIONS. PER DR. RUBIO, TITRATE LEVOPHED DOWN FIRST, THEN VASO AND THEN EPI. INFUSIONS TO CVC TO RIJ, PATENT WITH POSITIVE BLOOD DRAWBACK. OG TO LIS, DRAINAGE COLEMAN IN COLOR. TEMP MCGUIRE PATENT AND DRAINING TO GRAVITY.
[2023-06-08] VITALS (51 sets, daily range): BP systolic 80–113; BP diastolic 48–66
[2023-06-08] MEDS ORDERED: Insulin Human Lispro 100 Units/ML 3ML Syringe SC SCH
[2023-06-08] MEDS ORDERED: Hydrogen Peroxide 1.5 % Solution MT SCH ×2
[2023-06-08 01:00] LABS: Source, Urine Foley catheter
[2023-06-08 01:24] LABS: Bilirubin, Urine Neg (Neg); Blood, Urine 3+ (Neg); Glucose Qualitative, Urine 4+ (Neg); Ketones, Urine Neg (Neg); Leukocyte Esterase, Urine Neg (Neg); Nitrite, Urine Neg (Neg); Protein, Urine 2+ (Neg); Specific Gravity, Urine 1.015 (1.003-1.022); Urobilinogen, Urine NORM (Normal)
[2023-06-08 01:27] LABS: Appearance, Urine Clear (Clear); Color, Urine Yellow (P-Yellow)
[2023-06-08 01:34] LABS: Red Blood Cells, Urine 0-2 /hpf (0-2); White Blood Cells, Urine 0-2 /hpf (0-5)
[2023-06-08 01:35] LABS: Squamous Epithelial Cells Rare /hpf (Few)
[2023-06-08 01:36] LABS: Bacteria Few /hpf
[2023-06-08 03:36] LABS: BASOPHILS ABSOLUTE AUTO 0.05 K/mm3 (0.00-0.23); BASOPHILS PERCENT AUTO 0 % (0-2); EOSINOPHILS ABSOLUTE AUTO 0.01 K/mm3 (0.00-0.68); EOSINOPHILS PERCENT AUTO 0 % (0-6); Hematocrit 27.6 % (33.0-51.0); Hemoglobin 8.2 g/dL (11.5-16.0); IMMATURE GRAN ABSOLUTE AUTO 0.14 K/mm3 (0.00-0.10); IMMATURE GRAN PERCENT AUTO 1 % (0-1); LYMPHOCYTES ABSOLUTE AUTO 0.45 K/mm3 (0.84-5.20); LYMPHOCYTES PERCENT AUTO 3 % (21-46); MONOCYTES ABSOLUTE AUTO 0.82 K/mm3 (0.16-1.47); MONOCYTES PERCENT AUTO 6 % (4-13); Mean Corpuscular HGB 23.3 pg (26.0-34.0); Mean Corpuscular HGB Conc 29.7 g/dL (31.5-36.5); Mean Corpuscular Volume 78 fL (80-100); Mean Platelet Volume 9.8 fL (9.1-12.4); NEUTROPHILS ABSOLUTE AUTO 13.56 K/mm3 (1.96-9.15); NEUTROPHILS PERCENT AUTO 90 % (41-73); NRBC ABSOLUTE 0.09 K/mm3 (0.00-0.02); NRBC Auto 0.6 /100 WBC (0.0-0.2); Platelet Count 273 K/mm3 (150-400); RDW Standard Deviation 48.4 fL (35.1-46.3); Red Blood Cell Count 3.52 M/mm3 (3.80-5.20); White Blood Cell Count 15.03 K/mm3 (4.00-11.30)
[2023-06-08 03:51] LABS: International Normalized Ratio 1.46
[2023-06-08 03:57] LABS: Albumin, Blood 2.4 g/dL (3.4-5.0); Albumin/Globulin Ratio 0.8 (0.8-1.8); Bilirubin, Total 0.7 mg/dL (0.1-1.0); Bun/Creatinine Ratio 34.5 (12.0-20.0); Calcium, Blood 8.3 mg/dL (8.5-10.1); Creatinine, Blood 1.16 mg/dL (0.40-1.00); Globulin, Blood 3.2 g/dL (2.2-4.0); Magnesium, Blood 2.2 mg/dL (1.6-2.4); Potassium, Blood 3.8 mmol/L (3.5-5.5); Total Protein, Blood 5.6 g/dL (6.4-8.2)
[2023-06-08] MEDS ORDERED: Levothyroxine Sodium 0.025 MG Tab PT SCH (06:00)
--- NOTE | 2023-06-08 06:48 | NUR ---
SHIFT SUMMARY PT REMAINS INTUBATED AND SEDATED. PROPOFOL GTT INFUSING, SEE FLOWSHEET. RASS -2/-3. PT OPENS EYES TO PHYSICAL STIMULATION AND FOLLOWS COMMANDS AT TIME. WHEN PT IS AWAKE BECOMES VERY AGITATED, PULLS AT RESTRAINTS AND ATTEMPTS TO SIT UP. PT IS EASILY CONSOLABLE AT THIS TIME. REMAINS IN BILATERAL SOFT WRIST RESTRAINTS FOR SAFETY. CPOT 0-1. VENT SETTINGS UNCHANGED THIS SHIFT, AC/VC + 16/400/5/35%, O2 SATS > 95%. CARDIAC MONITORING REFLECTS NSR, HR 80s. EPI AND VASO TITRATED OFF THIS SHIFT, SEE FLOWSHEET. LEVOPHED RESTARTED, SEE FLOWSHEET. OG IN PLACE, SET TO LIS. COLEMAN/BILE DRAINAGE NOTED. CVC TO RIJ PATENT. TEMP MCGUIRE PATENT AND DRAINING TO GRAVITY, PT AFEBRILE THIS SHIFT.
[2023-06-08] MEDS ORDERED: Acetaminophen 160MG / 5ML 10.15 UDC PT PRN ×2 (08:20→08:35)
[2023-06-08] MEDS ORDERED: Rivaroxaban 10 MG Tab PT SCH (09:00)
[2023-06-08] MEDS ORDERED: Pantoprazole Sodium 40 MG Injection IV SCH (09:00)
[2023-06-08] MEDS ORDERED: Clopidogrel Bisulfate 75 MG Tab PT SCH (09:00)
[2023-06-08] MEDS ORDERED: Enoxaparin 80 MG/0.8 ML SYR SC SCH (09:00)
--- NOTE | 2023-06-08 10:37 | NUR ---
SHIFT ASSESSMENT ASSUMED CARE OF PT @ 0700, BEDSIDE REPORT RECEIVED FROM ANU SHARPE. PT INTUBATED AND LIGHTLY SEDATED. AWAKENS TO VERBAL STIMULI, WEAKLY SQUEEZING BOTH HANDS, TURNS TO VOICE. LEVOPHED STARTED @ 0700 @ 2MCG/MIN c MAP GOAL >65 VIA CENTRAL LINE IN RIJ. OTHER PRESSORS REMAIN OFF. OGT CLAMPED FOR MEDICATION ADMINSTRATION. TEMP PROBE MCGUIRE DRAINING YELLOW URINE, TEMP OF >101, MEDICATED WITH PRN ACETAMINOPHEN. PT CURRENTLY GIVEN SBT, TOLERATING WELL, POTENTIALLY EXTUBATING THIS AM.
[2023-06-08] MEDS ORDERED: Sacubitril/Valsartan 24 MG-26 MG Tab PO SCH (10:59)
[2023-06-08] MEDS ORDERED: Carvedilol 6.25 MG Tab PT SCH (11:00)
--- NOTE | 2023-06-08 13:14 | NUR ---
UPDATE PT EXTUBATED @ 1245 TO 2LPM VIA NC. ALERT TO SELF AND FAMILY, FOLLOWING COMMANDS. REMAINS ON LEVOPHED FOR MAP GOAL >65, SEE FLOWSHEET.
[2023-06-08] MEDS ORDERED: Acetaminophen 160MG / 5ML 10.15 UDC PO PRN (14:05)
--- NOTE | 2023-06-08 14:24 | NUR ---
Pt on ventilator and tolerating wean. Daughter at bedside. Had therputic conversation with daughter. She is vey stressed and crying. She helps care for her mother and found her. she has to contact her sisters today and update them.
[2023-06-08] MEDS ORDERED: Ketamine HCl 100 MG / ML 5ML Vial IV ONE (14:56)
[2023-06-08] MEDS ORDERED: Phenylephrine HCl 100 MCG/ML-NS 10MLSYR (1MG/10ML) IV ONE (14:56)
[2023-06-08] MEDS ORDERED: LORazepam 2 MG/ML 1ML Injection IV ONE (14:56)
--- NOTE | 2023-06-08 18:02 | NUR ---
SHIFT SUMMARY PT AWAKENS EASILY TO VERBAL STIMULI, ALERT TO PERSON, PLACE, AND FAMILY. FOLLOWING COMMANDS, COMMUNICATING APPROPRIATELY WITH STAFF AND FAMILY. ON 2LPM O2 VIA NC. REMAINS ON LEVOPHED @ 4MCG FOR MAP >65. NSR ON THE MEDIA PLANNER / BUYER. TEMP PROBE MCGUIRE DRAINING YELLOW URINE, AFEBRILE. TOLERATING PO INTAKE WELL, NO S/S OF ASPIRATION. NO BM THIS SHIFT.
--- NOTE | 2023-06-08 21:24 | NUR ---
ASSUMED CARE CARE WAS ASSUMED OF PT AT 1900, REPORT GIVEN BY MISAEL SHARPE. DURING BEDSIDE SHIFT REPORT PT COMPLAINING OF 10/10 SHARP CHEST PAIN. EKG PERFORMED, NOTHING SIGNIFICANT NOTED. NOTIFIED HOSPITALIST, MEDICATED PT PER EMAR. AFTER PAIN MEDICATION ADMIN PT FELL BACK ASLEEP, PAIN APPEARS TO BE STERNAL/LEFT SIDE OF CHEST. PAIN WORSE WHEN RIBCAGE TOUCHED, PAIN POTENTIALLY FROM CPR PERFORMED BY EMS. PT SLEEPING AT THIS TIME. A/O X1-2, UNABLE TO ANSWER ORIENTATION QUESTIONS APPROPRIATELY BUT IS ABLE TO MAKE NEEDS KNOWN BY YELLING OUT OR ASKING DAUGHTERS THAT WERE AT BEDSIDE FOR SOMETHING. PT ABLE TO FOLLOW COMMANDS. HEATING PAD IN PLACE NEAR LEFT CHEST WALL. PT ON 2 L N/C, O2 SATS > 95%. CARDIAC MONITORING REFLECTS NSR, HR 80s. LEVOPHED INFUSING FOR MAP GOAL > 65, SEE FLOWSHEET. CVC TO RIJ PATENT. TEMP MCGUIRE PATENT AND DRAINING TO GRAVTIY. PT TOLERATES PO FLUIDS FOR MEDICATION ADMIN.
[2023-06-08] MEDS ORDERED: Ketorolac Tromethamine 15mg Vial IV PRN (22:15)
[2023-06-08] MEDS ORDERED: OxyCODONE 5 mg/Acetamin 325 mg TABLET PO PRN (22:15)
[2023-06-09] VITALS (85 sets, daily range): BP systolic 68–118; BP diastolic 51–79
[2023-06-09 03:50] LABS: Hemoglobin 8.5 g/dL (11.5-16.0); Mean Corpuscular HGB 23.7 pg (26.0-34.0); Mean Corpuscular HGB Conc 30.4 g/dL (31.5-36.5); Mean Corpuscular Volume 78 fL (80-100); Mean Platelet Volume 10.1 fL (9.1-12.4); NRBC ABSOLUTE 0.19 K/mm3 (0.00-0.02); NRBC Auto 1.2 /100 WBC (0.0-0.2); Platelet Count 260 K/mm3 (150-400); RDW Coefficient Variation 17.2 % (11.7-14.2); RDW Standard Deviation 48.3 fL (35.1-46.3); Red Blood Cell Count 3.58 M/mm3 (3.80-5.20); White Blood Cell Count 16.48 K/mm3 (4.00-11.30)
[2023-06-09 04:11] LABS: Albumin, Blood 2.1 g/dL (3.4-5.0); Albumin/Globulin Ratio 0.6 (0.8-1.8); Bilirubin, Total 0.5 mg/dL (0.1-1.0); Bun/Creatinine Ratio 40.6 (12.0-20.0); Calcium, Blood 7.8 mg/dL (8.5-10.1); Creatinine, Blood 1.01 mg/dL (0.40-1.00); Globulin, Blood 3.4 g/dL (2.2-4.0); Magnesium, Blood 2.4 mg/dL (1.6-2.4); Phosphorus, Blood 2.7 mg/dL (2.5-4.9); Potassium, Blood 4.2 mmol/L (3.5-5.5); Total Protein, Blood 5.5 g/dL (6.4-8.2)
--- NOTE | 2023-06-09 05:02 | NUR ---
SHIFT SUMMARY PT A/O X2-3. PT YELLS OUT WHEN IN PAIN, DIFFICULT TO CONSOLE WHEN IN PAIN. PT COMPLAINING OF LEFT RIB PAIN, MEDICATING PER EMAR WHICH APPEARS TO HELP. AFTER MEDICATION ADMIN PT GOES BACK TO SLEEP. PT TOLERATING PO FLUIDS FOR BINDING FOLDER MACHINE. PT ON RA AT THIS TIME, O2 SATS > 95%. CARDIAC MONITORING REFLECTS NSR, HR 70s. LEVOPHED GTT INFUSING, SEE FLOWSHEET. TEMP MCGUIRE PATENT AND DRAINING TO GRAVITY. CVC TO RIJ PATENT.
[2023-06-09] MEDS ORDERED: Insulin Human Lispro 100 Units/ML 3ML Syringe SC SCH (11:42)
--- NOTE | 2023-06-09 18:18 | NUR ---
SHIFT SUMMARY PATIENT LEVOPHED ON SB. MAPS 70'S-80'S. SHAYLA REMOVED THIS SHIFT. NO BM THIS SHIFT. PATIENT TOLERATING PO DIET, ALTHOUGH LOW APPETITE. UP TO CHAIR FOR LUNCH THIS SHIFT AND WAS ABLE TO STAND/PIVOT TRANSFER WITH WALKER AND GAIT BELT, ONE PERSON ASSIST. FAMILY CAME TO VISIT THROUGHOUT SHIFT. MEDICATED FOR RIB PAIN PER EMAR, LONGEST RESPONSE TO TORADOL IV. NO OTHER CHANGES THIS SHIFT.
--- NOTE | 2023-06-09 21:25 | NUR ---
ASSUMED CARE CARE WAS ASSUMED OF PT AT 1900, REPORT GIVEN BY CATALINA SHARPE. PT A/O X3, COMPLAINING OF L RIB PAIN. MEDICATED PT PER EMAR AND MOVED PT TO RECLINER, PT APPEARS MORE COMFORTABLE AT THIS TIME AND IS SLEEPING. PT ON RA, O2 SATS > 95%. CARDIAC MONITORING REFLECTS NSR, HR 70s. BP SOFT, SBP 100s. NS TKO INFUSING THROUGH CVC TO RIJ.
[2023-06-10] VITALS (29 sets, daily range): BP systolic 91–121; BP diastolic 61–78
[2023-06-10 04:02] LABS: BASOPHILS ABSOLUTE AUTO 0.11 K/mm3 (0.00-0.23); BASOPHILS PERCENT AUTO 1 % (0-2); EOSINOPHILS ABSOLUTE AUTO 1.61 K/mm3 (0.00-0.68); EOSINOPHILS PERCENT AUTO 13 % (0-6); Hematocrit 29.1 % (33.0-51.0); Hemoglobin 8.8 g/dL (11.5-16.0); IMMATURE GRAN ABSOLUTE AUTO 0.05 K/mm3 (0.00-0.10); IMMATURE GRAN PERCENT AUTO 0 % (0-1); LYMPHOCYTES ABSOLUTE AUTO 1.44 K/mm3 (0.84-5.20); LYMPHOCYTES PERCENT AUTO 12 % (21-46); MONOCYTES ABSOLUTE AUTO 1.72 K/mm3 (0.16-1.47); MONOCYTES PERCENT AUTO 14 % (4-13); Mean Corpuscular HGB 23.2 pg (26.0-34.0); Mean Corpuscular HGB Conc 30.2 g/dL (31.5-36.5); Mean Corpuscular Volume 77 fL (80-100); Mean Platelet Volume 9.6 fL (9.1-12.4); NEUTROPHILS ABSOLUTE AUTO 7.14 K/mm3 (1.96-9.15); NEUTROPHILS PERCENT AUTO 59 % (41-73); NRBC ABSOLUTE 0.09 K/mm3 (0.00-0.02); NRBC Auto 0.7 /100 WBC (0.0-0.2); Platelet Count 257 K/mm3 (150-400); RDW Coefficient Variation 17.2 % (11.7-14.2); RDW Standard Deviation 47.8 fL (35.1-46.3); Red Blood Cell Count 3.79 M/mm3 (3.80-5.20); White Blood Cell Count 12.07 K/mm3 (4.00-11.30)
[2023-06-10 04:36] LABS: Albumin, Blood 2.2 g/dL (3.4-5.0); Albumin/Globulin Ratio 0.6 (0.8-1.8); Bilirubin, Total 0.4 mg/dL (0.1-1.0); Bun/Creatinine Ratio 45.2 (12.0-20.0); Calcium, Blood 8.1 mg/dL (8.5-10.1); Creatinine, Blood 0.91 mg/dL (0.40-1.00); Globulin, Blood 3.6 g/dL (2.2-4.0); Magnesium, Blood 2.6 mg/dL (1.6-2.4); Phosphorus, Blood 2.5 mg/dL (2.5-4.9); Total Protein, Blood 5.8 g/dL (6.4-8.2)
--- NOTE | 2023-06-10 05:51 | NUR ---
SHIFT SUMMARY PT REMAINS A/O X3. PT COMPLAINING OF RIB PAIN T/O NIGHT. PT DIFFICULT TO CONSOLE WHEN IN PAIN. MEDICATING PT PER EMAR. PT ADAMANT THAT SHE WANTS TO GO HOME, STATING MULITPLE TIMES THAT SHE IS GOING TO CALL HER DAUGHTER AT 0800 THIS MORNING TO COME AND PICK HER UP. PT 1 ASSIST TO CHAIR/BSC. PT ON RA, O2 SATS > 95%. CARDIAC MONITORING REFLECTS NSR, HR 80s AT THIS TIME. SBP 90s-110s. PT CONTINENT. AFEBRILE THIS SHIFT.
--- NOTE | 2023-06-10 08:20 | NUR ---
INITIAL ASSESSMENT PATIENT ALERT AND ORIENTED X 4, BUT DOES STATE STATEMENTS THAT ARE NOT PERTINENT TO CONVERSATION AT TIMES. PATIENT SPEECH MUMBLED. PATIENT ANXIOUS. PATIENT COMPLAINS OF PAIN IN L CHEST FROM CPR; PRN PERCOCET GIVEN. PATIENT WEAK AND NEEDS WALKER WITH 1 PERSON ASSIST TO GET AROUND ROOM. PATIENT AFEBRILE. PATIENT SATTING 90% AND GREATER ON RA. LUNGS CLEAR THROUGHOUT. PATIENT IN SR, HR IN THE 70S. SBP IN THE 120S. GI AND APPEARS WNL. SKIN PALE, COOL AND DRY. SCATTERED SCABS NOTED TO BLES. DISCOLORATION NOTED TO BLES. BLOOD SUGAR 145 THIS AM. BED LOW, CALL LIGHT IN REACH. CARE CONTINUES.
[2023-06-10] MEDS ORDERED: Lactobacil 2-S.Thermo-Bifido 1 1 Cap PO SCH (09:00)
[2023-06-10] MEDS ORDERED: HyDROXyzine HCl 10 MG Tab PO PRN (11:30)
[2023-06-10] MEDS ORDERED: DICLOFENAC 1% TOPICAL GEL TOP PRN (11:30)
[2023-06-10] MEDS ORDERED: ALBU90OI INH (11:33)
[2023-06-10] MEDS ORDERED: ANORO ELLIPTA1 EACH INH (11:34)
[2023-06-10] MEDS ORDERED: CARB200ER PO (11:35)
[2023-06-10] MEDS ORDERED: ENTRESTO 97 MG1 EACH PO (11:37)
[2023-06-10] MEDS ORDERED: ASPI81CH PO (11:44)
--- NOTE | 2023-06-10 11:45 | NUR ---
DR. FELIX CALLED AND INFORMED THAT MED REC UPDATED. ORDER RECEIVED FOR HOME VOLTAREN, ATARAX AND GABAPENTIN RECEIVED. ORDER FOR MEDICAL STATUS WITH TELE RECEIVED.
--- NOTE | 2023-06-10 12:55 | NUR ---
SHIFT SUMMARY PATIENT REMAINED ALERT AND ORIENTED X 4 WITH OCCASIONAL STATEMENTS THAT ARE NOT PERTINENT TO CURRENT CONVERSATION. PATIENT ANXIOUS OFF AND ON. PATIENT GIVEN PRN PERCOCET AND TORADOL FOR COMPLAINTS OF PAIN IN L RIBS. PATIENT REMAINED AFEBRILE. PATIENT 1 PERSON ASSIST WITH WALKER IN ROOM. PATIENT WORKED WITH PHYSICAL THERAPY THIS AM. PATIENT REMAINED SATTING 90% AND GREATER ON RA. LUNGS REMAINED CLEAR T/O. PATIENT REMAINED IN SR WITH HR 70S TO 80S. SBP 90S TO 120S. NO BM THIS SHIFT. ADEQUATE URINE OUTPUT NOTED. NO CHANGES TO SKIN NOTED. BLOOD SUGARS 145 AND 200 THIS SHIFT. PATIENT TRANSFERRED TO MEDICAL FLOOR, ROOM 345. ALL BELONGINGS SENT WITH PATIENT. MESSAGE LEFT FOR DAUGHTER INFORMING OF TRANSFER. TRANSFER COMPLETE.
--- NOTE | 2023-06-10 12:59 | NUR ---
ASSUMED CARE OF PATIENT UPON HER ARRIVAL FROM ICU 8 AT 1255. SHE IS A&O X 4, FLAT AFFECT, MOANING A LITTLE. RIJ CENTRAL LINE STILL IN PLACE. STATED PAIN IS "OK." TELEMETRY BOX ORDERED. EDUCATED PT ABOUT FALL PRECAUTIONS, OXYGEN SAFETY, CALL LIGHT, AND ASKED HER NOT TO GET IN TO THE SHOWER WITHOUT A MEMBER OF NURSING STAFF PRESENT; VERBALIZED UNDERSTANDING OFF ALL. CALL LIGHT AND BELONGINGS IN REACH, BED IN LOWEST POSITION, AND BED ALARM ON. SHE IS WEARING NON-SKID FOOTWEAR. WARM BLANKETS GIVEN.
--- NOTE | 2023-06-10 13:11 | NUR ---
TELEMETRY BOX 19, VERIFIED WITH Ronan ECHEVERRIA. SINUS RHYTHM @ 74.
[2023-06-10] MEDS ORDERED: Gabapentin 300 MG Cap PO SCH (14:00)
--- NOTE | 2023-06-10 15:55 | NUR ---
Spiritual Care Visit. Pt. is resting in beed, but responds when I enter the room. The Pt. is soft spoken but pleasant. Facilitate a life review and establish some level of rapport. Consider matters of maria dolores and belief. Pt. displays evidence of awareness and engagement, but also displays evidence of exhaustion. Prayed with Pt. Pt. verbalized gratitiude for the spiritual care visit, and welcomed this slasher runner to return.
--- NOTE | 2023-06-10 18:04 | NUR ---
SHIFT SUMMARY: PT AWAKENED AT ~1745 C/O CHEST DISCOMFORT. CALLED HER DAUGHTER TO REPORT THIS. THIS AUTHOR SPOKE WITH DAUGHTER AFTER ASSESSING PT. ATARAX AND PERCOCET GIVEN THERE WERE NO CHANGES PER TELEMETRY, VSS, DENIED SOB AND DIZZINESS. SYMPTOMS RESOLVED WITH THESE INTERVENTIONS IN ABOUT 15 MINUTES. WAS ABLE TO EAT DINNER, BUT WAS TEARFUL, STATING "I'M SORRY I'M SUCH A BURDEN." PROVIDED REASSURANCE. IS HOPING TO D/C HOME TOMORROW.
--- NOTE | 2023-06-11 04:37 | NUR ---
SHIFT SUMMARY (SEE HARD COPY IN PT RECORD DT DOWNTIME)
[2023-06-11 06:01] LABS: BASOPHILS ABSOLUTE AUTO 0.09 K/mm3 (0.00-0.23); BASOPHILS PERCENT AUTO 1 % (0-2); EOSINOPHILS ABSOLUTE AUTO 1.07 K/mm3 (0.00-0.68); EOSINOPHILS PERCENT AUTO 9 % (0-6); Hematocrit 29.8 % (33.0-51.0); IMMATURE GRAN ABSOLUTE AUTO 0.05 K/mm3 (0.00-0.10); IMMATURE GRAN PERCENT AUTO 0 % (0-1); LYMPHOCYTES ABSOLUTE AUTO 1.89 K/mm3 (0.84-5.20); LYMPHOCYTES PERCENT AUTO 15 % (21-46); MONOCYTES PERCENT AUTO 13 % (4-13); Mean Corpuscular HGB 23.3 pg (26.0-34.0); Mean Corpuscular HGB Conc 30.2 g/dL (31.5-36.5); Mean Corpuscular Volume 77 fL (80-100); Mean Platelet Volume 10.2 fL (9.1-12.4); NEUTROPHILS ABSOLUTE AUTO 7.91 K/mm3 (1.96-9.15); NEUTROPHILS PERCENT AUTO 63 % (41-73); NRBC ABSOLUTE 0.13 K/mm3 (0.00-0.02); Platelet Count 281 K/mm3 (150-400); RDW Coefficient Variation 17.2 % (11.7-14.2); Red Blood Cell Count 3.87 M/mm3 (3.80-5.20); White Blood Cell Count 12.61 K/mm3 (4.00-11.30)
[2023-06-11 07:08] LABS: Albumin, Blood 2.3 g/dL (3.4-5.0); Albumin/Globulin Ratio 0.6 (0.8-1.8); Bilirubin, Total 0.5 mg/dL (0.1-1.0); Bun/Creatinine Ratio 39.5 (12.0-20.0); Calcium, Blood 8.6 mg/dL (8.5-10.1); Creatinine, Blood 0.73 mg/dL (0.40-1.00); Globulin, Blood 3.8 g/dL (2.2-4.0); Potassium, Blood 4.4 mmol/L (3.5-5.5); Total Protein, Blood 6.1 g/dL (6.4-8.2)
[2023-06-11 07:23] VITALS: BP 117/74
[2023-06-11] MEDS ORDERED: Sacubitril/Valsartan 24 MG-26 MG Tab PO SCH (09:00)
[2023-06-11] MEDS ORDERED: Gabapentin 400 MG Cap PO SCH (09:00)
[2023-06-11] MEDS ORDERED: Rivaroxaban 10 MG Tab PO SCH (09:00)
[2023-06-11] MEDS ORDERED: Ipratropium/Albuterol SulF 2.5-0.5MG/3 ML Amp INH SCH (13:25)
--- NOTE | 2023-06-11 16:28 | NUR ---
DAYSHIFT SUMMARY Patient alert & oriented x4. Complaining of severe pain r/t rib fracture. PRN Percocet & IV fentynal given for pain PRNs effective. Patient OOB for all meals. Worked with therapy this shift. Vitals stable. Telemetry in place, no events this shift. Will continue plan of care.
[2023-06-11] MEDS ORDERED: Pantoprazole Sodium 40 MG Tab PO SCH (16:30)
--- NOTE | 2023-06-11 16:56 | NUR ---
[facility] Pharmacy contacted RN about Rocephin. Pt started ABX emperically, BC are negative. RN clarified order with MD, instructed that tonights dose of IV Rocephin will be the last dose, and will discontinue tomorrow.
[2023-06-11 17:27] VITALS: BP 116/67
[2023-06-11 19:25] VITALS: BP 119/66
[2023-06-11] MEDS ORDERED: CARBAMAZEPINE 200 MG PO SCH (21:00)
--- NOTE | 2023-06-11 21:42 | NUR ---
CODE STATUS CHANGE PT REQUESTED TO BE FULL CODE. NOTIFIED HOSPITALIST DAVIAN, ORDERS RECEIVED TO CHANGE CODE STATUS TO FULL CODE.
[2023-06-12 02:58] VITALS: BP 120/74
--- NOTE | 2023-06-12 05:04 | NUR ---
PT PLACED IN SUPINE POSITION. RIGHT IJ REMOVED WITH SKIVER SOCK LININGS ASSISTING. DRESSING REMOVED, SUTURES REMOVED, PETROLEUM GAUZE WITH 2X2'S PLACED ONTO RIJ SITE, PT INSTRUCTED TO HUM THE CATHETER WAS REMOVED, PRESSURE APPLIED FOR SEVERAL MINUTES, NEW 2X2 PLACED AND CLEAR TRANSPARENT DRESSING PLACED OVER GAUZE. PT TOLERATED PROCEDURE WELL. CALL LT IN PLACE.
--- NOTE | 2023-06-12 05:16 | NUR ---
END OF SHIFT SUMMARY PT EMOTIONAL THROUGHOUT NIGHT, TEARFUL AND CRYING OCCASIONALLY. C/O CONTINUED PAIN TO STERNUM/RIB/CHEST UNCHANGED, REQUIRED PERCOCET AND FENTANYL. AMBULATING WELL WITH FWW AND SBA. REMAINED ON RA WITH OXYGEN SAT REMAINING >92 ON CONTINUOUS PULSE OX. RIJ D/C THIS AM BY DELL ALVAREZ WITHOUT COMPLICATION. PENDING D/C HOME WITH .
[2023-06-12 05:30] LABS: Hematocrit 29.4 % (33.0-51.0); Hemoglobin 8.6 g/dL (11.5-16.0); Mean Corpuscular HGB 23.2 pg (26.0-34.0); Mean Corpuscular HGB Conc 29.3 g/dL (31.5-36.5); Mean Corpuscular Volume 80 fL (80-100); Mean Platelet Volume 10.2 fL (9.1-12.4); NRBC ABSOLUTE 0.12 K/mm3 (0.00-0.02); NRBC Auto 0.9 /100 WBC (0.0-0.2); Platelet Count 259 K/mm3 (150-400); RDW Coefficient Variation 17.4 % (11.7-14.2); RDW Standard Deviation 50.3 fL (35.1-46.3); White Blood Cell Count 12.83 K/mm3 (4.00-11.30)
[2023-06-12] MEDS ORDERED: Pantoprazole Sodium 40 MG Tab PO SCH (06:00)
[2023-06-12 06:10] LABS: Albumin, Blood 2.2 g/dL (3.4-5.0); Albumin/Globulin Ratio 0.6 (0.8-1.8); Bilirubin, Total 0.4 mg/dL (0.1-1.0); Bun/Creatinine Ratio 33.7 (12.0-20.0); Calcium, Blood 8.1 mg/dL (8.5-10.1); Creatinine, Blood 0.71 mg/dL (0.40-1.00); Globulin, Blood 3.8 g/dL (2.2-4.0); Potassium, Blood 4.6 mmol/L (3.5-5.5)
[2023-06-12 07:19] VITALS: BP 123/72
[2023-06-12] MEDS ORDERED: Empagliflozin 25 MG TAB PO SCH (09:00)
[2023-06-12] MEDS ORDERED: PARoxetine HCl 20 MG Tab PO SCH (09:00)
[2023-06-12] MEDS ORDERED: Torsemide 10 MG TAB PO SCH (09:00)
[2023-06-12] MEDS ORDERED: Gabapentin 400 MG Cap PO SCH (14:00)
[2023-06-12 17:34] VITALS: BP 113/79
--- NOTE | 2023-06-12 17:55 | NUR ---
PT DROWSY AND ORIENTEDX4. CONFUSED AT TIMES. REPORTS SEVERE PAIN IN L RIB AND CHEST FROM CPR. TREATED PER EMAR. DROWSY MOST OF THIS SHIFT. UNABLE TO EAT LUNCH DUE TO NOT HAVING ABILITY TO STAY AWAKE DURING MEAL. PT HAD A VISIT FROM FRIENDS AND FAMILY TODAY. ELEVATED MOOD. SBA TO BATHROOM WITH FWW.
[2023-06-12 19:00] LABS: Hematocrit 31.4 % (33.0-51.0); Hemoglobin 9.1 g/dL (11.5-16.0); Mean Corpuscular HGB 23.1 pg (26.0-34.0); Mean Corpuscular Volume 80 fL (80-100); Mean Platelet Volume 9.8 fL (9.1-12.4); NRBC ABSOLUTE 0.09 K/mm3 (0.00-0.02); NRBC Auto 0.9 /100 WBC (0.0-0.2); Platelet Count 282 K/mm3 (150-400); RDW Coefficient Variation 17.2 % (11.7-14.2); RDW Standard Deviation 49.9 fL (35.1-46.3); Red Blood Cell Count 3.94 M/mm3 (3.80-5.20); White Blood Cell Count 10.55 K/mm3 (4.00-11.30)
[2023-06-12 20:21] VITALS: BP 111/67
[2023-06-13] VITALS (9 sets, daily range): BP systolic 100–120; BP diastolic 65–85
[2023-06-13] MEDS ORDERED: Polyethylene Glycol 3350 17 gm PO SCH (09:50)
[2023-06-13] MEDS ORDERED: Bumetanide 0.25 MG/ML 10ML Vial IV ONE (09:55)
--- NOTE | 2023-06-13 17:25 | NUR ---
PATIENT IS ALERT AND ORIENTED AND COOPERATIVE WITH CARE. ON 2L O2 VIA NC, SHE DOES DESATURATE WHILE NAPPING DURING THE DAY. CONTINUOUS PULSE OXIMETRY IN PLACE. PATIENT MEDICATED WITH BUMEX THIS SHIFT FOR BLE EDEMA, SHE TOLERATED THE BUMEX WELL AND HER BP REMAINED STABLE. SHE HAS VOIDED AT LEAST 2,800 ML THIS SHIFT. WORKED WITH PT TODAY. HER DAUGHTERS HAVE BEEN UPDATED WITH THE PLAN FOR TODAY AND POSSIBLE DC HOME TOMORROW. WILL CONTINUE TO MONITOR
--- NOTE | 2023-06-13 19:24 | NUR ---
RN WALKED BY PATIENT'S ROOM AND SAW THROUGH THE REFLECTION OF THE WINDOW THAT THE PATIENT WS ON THE BATHROOM FLOOR FACING THE SINK. RN RAN IN AND CHECK ON THE PATIENT AND CALLED FOR HELP. TWO ADDITIONAL RN'S ARRIVED ,PLACED A GAIT BELT ON THE PATIENT AND ASSISTED THE PATIENT WITH STANDING AND WALKING BACK TO BED. VSS. 2L O2 VIA NC. PATIENT CLAIMS SHE STOOD FROM THE TOILET WITHOUT ASSISTANCE, BECAME LIGHTHEADED AND SAT ON THE FLOOR. NO VISIBLE INJURY. PATIENT C/O THE SAME PAIN SHES HAD IN THE CHEST BENEATH HER LEFT BREAST. CHARGE NURSE NOTIFIED.
[2023-06-14 04:28] VITALS: BP 125/77
[2023-06-14 05:03] LABS: Hemoglobin 9.2 g/dL (11.5-16.0); Mean Corpuscular HGB 23.1 pg (26.0-34.0); Mean Corpuscular HGB Conc 28.8 g/dL (31.5-36.5); Mean Corpuscular Volume 80 fL (80-100); Mean Platelet Volume 9.5 fL (9.1-12.4); NRBC ABSOLUTE 0.04 K/mm3 (0.00-0.02); NRBC Auto 0.4 /100 WBC (0.0-0.2); Platelet Count 296 K/mm3 (150-400); RDW Coefficient Variation 17.3 % (11.7-14.2); RDW Standard Deviation 50.3 fL (35.1-46.3); Red Blood Cell Count 3.99 M/mm3 (3.80-5.20); White Blood Cell Count 11.33 K/mm3 (4.00-11.30)
[2023-06-14 05:53] LABS: Albumin, Blood 2.4 g/dL (3.4-5.0); Anion Gap 3 mmol/L (6-16); Blood Urea Nitrogen 19 mg/dL (8-24); CO2, Blood 31 mmol/L (21-32); Calcium, Blood 8.4 mg/dL (8.5-10.1); Chloride, Blood 101 mmol/L (98-108); Creatinine, Blood 0.95 mg/dL (0.40-1.00); Glomerular Filtration Rate 67 (60-); Glucose, Blood 163 mg/dL (70-99); Phosphorus, Blood 3.2 mg/dL (2.5-4.9); Potassium, Blood 4.2 mmol/L (3.5-5.5); Sodium, Blood 135 mmol/L (136-145)
[2023-06-14 07:28] VITALS: BP 112/68
[2023-06-14] MEDS ORDERED: Bumetanide 0.25 MG/ML 4ML ViaL IV STA (07:32)
[2023-06-14] MEDS ORDERED: Gabapentin 300 MG Cap PO SCH (09:00)
[2023-06-14] MEDS ORDERED: MIRALAX17 GM PO (12:21)
[2023-06-14] MEDS ORDERED: PANT40 PO (12:21)
[2023-06-14] MEDS ORDERED: Percocet 5-3251 EACH PO (12:22)
--- NOTE | 2023-06-14 12:51 | NUR ---
SHIFT/DISCHARGE SUMMARY Pt remains A&Ox3 this shift, forgetful at times. VSS. Denies pain. Up to bathroom with SBA/FWW. Voiding without difficulty. Tolerating meals. Resp even nonlabored on RA. 2L NC with sleep. Continuous pulse ox in place this shift. All discharge instructions reviewed with pt and daughter. Pt to lobby via wc at 1240.
== END 2023-06-14 12:46 | disposition home health service (06) | DRG 917 ==
LOC: ER 14:17 → ICUE 17:44 → MEDS 17:44 → ICUE 18:36 → MEDS 06-10 12:53 → ENPENDDIS 06-14 11:36 → MEDS 06-14 12:46
PROVIDERS: Family Medicine; Hospitalist; Internal Medicine; Internal Medicine Critical Care Medicine; Nurse Practitioner Acute Care; Student in an Organized Health Care Education/Training Program; ADMIT Internal Medicine
PROC: 5A1945Z Respiratory Ventilation, 24-96 Consecutive Hours (ICD-10-PCS; principal; 2023-06-07)
PROC: 02HV33Z Insertion of Infusion Device into Superior Vena Cava, Percutaneous Approach (ICD-10-PCS; 2023-06-07)
PROC: 3E033XZ Introduction of Vasopressor into Peripheral Vein, Percutaneous Approach (ICD-10-PCS; 2023-06-07)
DX: T43.651A Poisoning by methamphetamines accidental (unintentional), initial encounter (principal); G92.8 Other toxic encephalopathy; J96.01 Acute respiratory failure with hypoxia; I46.9 Cardiac arrest, cause unspecified; J69.0 Pneumonitis due to inhalation of food and vomit; I21.A1 Myocardial infarction type 2; R57.0 Cardiogenic shock; I42.0 Dilated cardiomyopathy; I48.20 Chronic atrial fibrillation, unspecified; I42.7 Cardiomyopathy due to drug and external agent; I50.42 Chronic combined systolic (congestive) and diastolic (congestive) heart failure; R18.8 Other ascites; E87.1 Hypo-osmolality and hyponatremia; Z66 Do not resuscitate; T40.711A Poisoning by cannabis, accidental (unintentional), initial encounter; T40.601A Poisoning by unspecified narcotics, accidental (unintentional), initial encounter; I25.10 Atherosclerotic heart disease of native coronary artery without angina pectoris; J44.9 Chronic obstructive pulmonary disease, unspecified; F32.A Depression, unspecified; F41.9 Anxiety disorder, unspecified; E03.9 Hypothyroidism, unspecified; I08.1 Rheumatic disorders of both mitral and tricuspid valves; E11.51 Type 2 diabetes mellitus with diabetic peripheral angiopathy without gangrene; F15.10 Other stimulant abuse, uncomplicated; I11.0 Hypertensive heart disease with heart failure; K21.9 Gastro-esophageal reflux disease without esophagitis; G43.909 Migraine, unspecified, not intractable, without status migrainosus; E78.5 Hyperlipidemia, unspecified; E83.51 Hypocalcemia; R94.31 Abnormal electrocardiogram [ECG] [EKG]; R16.0 Hepatomegaly, not elsewhere classified; R07.89 Other chest pain; R00.1 Bradycardia, unspecified; Z11.52 Encounter for screening for COVID-19; Z28.21 Immunization not carried out because of patient refusal; Z95.5 Presence of coronary angioplasty implant and graft; Z79.01 Long term (current) use of anticoagulants; Z99.81 Dependence on supplemental oxygen; Z79.890 Hormone replacement therapy; Z87.891 Personal history of nicotine dependence; Z86.73 Personal history of transient ischemic attack (TIA), and cerebral infarction without residual deficits; Z79.84 Long term (current) use of oral hypoglycemic drugs
CPT/HCPCS: 0241U; 36415; 36556; 51702; 70450; 71045; 76705; 80047; 80053; 80069; 81001; 82550; 82803; 82947; 83605; 83735; 83880; 84100; 84145; 84443; 84484; 85014; 85025; 85027; 85610; 87040; 87086; 92953; 93005; 93010; 94002; 94003; 94640; 94644; 94664; 94760; 94762; 96365-59; 96366-59; 96368; 96375-59; 96376-59; 97110; 97116; 97161; 97530; 99291-25; 99292; A9270; C1751; C8929; C9113; G0480; J0171; J0612; J0696; J1610; J1650; J1885; J2060; J2310; J2371; J2405; J2704; J2930; J3010; J3370; J7030; J7050; J7060; Q9957